=== PATIENT | female | born 1985 | race Caucasian/White ===

== ENCOUNTER → 2019-12-15 11:17 | Outpatient (CLI) | payer OTHER, SELFPAY ==
--- NOTE | ~2019-12-15 | US_ITS ---
US abdomen complete EXAMINATION: US Abdomen Complete INDICATION: Abdominal pain. PROCEDURE: Realtime High Resolution abdomen ultrasound. COMPARISON: No prior studies for comparison FINDINGS: Gallbladder within normal limits. No gallstones, pericholecystic fluid, gallbladder wall t hickening or biliary dilatation. Common bile duct measures 3 mm. Liver echotexture within normal limits without focal mass. Pancreas within normal limits. Pancreati c tail is obscured by bowel gas. Spleen is unremarkeable. Renal echotexture is within normal limits bilaterally without hydronephrosis, contour deforming mass or renal stone. Right kidney measures 9.9 cm. Left kidney measures 9.3 cm. Visualized aspects of the aorta and IVC are within normal limits. Portal vein is patent. No sonograph ic Mcconnell's sign indicated by the technologist. IMPRESSION: 1: Unremarkable abdominal ultrasound. Reviewed, dictated and finalized at location B.
== END ==
PROVIDERS: PCP Physician Assistant; Visit Provider Physician Assistant
DX: R10.9 Unspecified abdominal pain (principal)
CPT/HCPCS: 76700

== ENCOUNTER 2024-11-28 16:00 | Outpatient (CLI) | payer OTHER, SELFPAY ==
--- NOTE | ~2024-11-28 | CT_ITS ---
Kayley Mendez EXAMINATION: CT abdomen pelvis w con COMPARISON: None HISTORY: hernia of anterior abdominal wall TECHNIQUE: Axial images were obtained through the abdomen, pelvis post administration of IV contrast. Oral contrast was also administered. Coronal reconstruction images were obtained from the axial views. CT scan performed using dose optimization techniques including the following automated exposure control; adjustment of mA and/or kV; use of iterative reconstruction technique. Automatic exposure control was used to reduce radiation dose. Permanent radiation dose record is archived to PACS. FINDINGS: CT abdomen: LUNG BASES: The lung bases are clear. The visualized portions of the heart and pericardium are unremarkable. LIVER: Unremarkable, liver contours intact, no lesions. SPLEEN: Unremarkable. KIDNEYS: Right Kidney: Unremarkable. No calculi. No hydronephrosis. Left Kidney: Unremarkable. No calculi. No hydronephrosis ADRENAL GLANDS: Unremarkable. PANCREAS: Unremarkable. GALLBLADDER/BILIARY: Unremarkable. No biliary dilatation. STOMACH AND ESOPHAGUS: Visualized stomach and esophagus within normal limits. BOWEL/MESENTERY: Moderate fecal content, no colitis or diverticulitis. Appendix not clearly identified. Mesentery normal. No dilated small bowel loops. ADENOPATHY/RETROPERITONEUM: No lymphadenopathy. AORTA/VASCULATURE: Normal caliber aorta. FREE FLUID OR FREE AIR: None. CT pelvis: SOLID ORGANS/REPRODUCTIVE: Unremarkable. BLADDER: Within normal limits. OSSEOUS STRUCTURES: No acute osseous abnormality.No suspicious lesions. OVERLYING SOFT TISSUES: Unremarkable. IMPRESSION: 1. No etiology identified to explain the patient's symptoms. Follow-up suggested if symptoms persist. Reviewed, dictated and finalized at location P. IMPRESSION: 1. No etiology identified to explain the patient's symptoms. Follow-up suggeste d if symptoms persist.
--- OUTSIDE RECORDS SUMMARY | 2024-11-28 16:06 | XMS_ITS | Data Portability ---
Author Organization [facility], Main Office Address [address] [place] [address] Assessment No assessment recorded. Plan of Treatment Reminders Order Date Submit Date Provider Last Modified By Organization Details Last Modified Time Details Appointments None recorded. Lab CBC w/ auto diff 2022 023 [facility], [address] [place], [address], 3 15:48:02 CMP, serum or plasma [address] Outpatient Lab, [address] [place], [address], 3 09:11:57 CBC w/ auto diff [address] Outpatient Lab, [address] [place], [address], 3 11:51:33 CMP, serum or plasma [address] Outpatient Lab, [address] [place], [address], 3 11:51:40 urinalysis complete, reflex culture [address] Outpatient Lab, [address] [place], [address], 3 11:51:49 TSH + free T4, serum 2022 023 [facility] Out[facility], [address] [place], [address], 3 11:57:35 vitamin B12 + folate, serum or blood [email or web address] Out[facility] Lab, [address] [place], [address], 3 11:52:00 lipid panel, serum [email or web address] Out[facility], [address] [place], [address], 3 11:51:26 Referral None recorded. Procedures None recorded. Surgeries None recorded. Imaging None recorded. Medication Orders escitalopra m 10 mg tablet 2022 023 [id number], [address] , [place], [place], [id number], 17:50:52 escitalopra m 10 mg tablet 2022 023 [facility] #[id number], [address] , [place], [place], [id number], 11:10:55 Patient TargetsNo targets recorded. Patient InstructionsNo instructions recorded. Reason for Referral None Reported. Results Created Date Observation Date Name Description Value Unit Range Abnormal Flag Note LastModifiedBy Organization Detail LastModifiedTime 08/04/1908/03/2020 US, pelvi s, trans abdom inal + trans vagin al No observ ation record ed. [id number] [facility] (Imaging) [address] [place], [address], 04/26/2022 17:13:45 08/10/19 21 08/03/2020 RF, upper gastr ointe bridget l tract + small bowel , w/ contr ast PO No observ ation record ed. [id number] [facility] (Imaging) [address] [place], [address], 04/26/2022 17:13:45 11/08/19 22 11/07/2021 CT, abdom en + pelvi s, w/ contr ast No observ ation record ed. [id number] [facility] (Imaging) [address] [place], [address], 04/26/2022 17:13:45 11/08/19 22 11/07/2021 NM, gastr ic empty ing scan No observ ation record ed. [id number] [facility] (Imaging) [address] [place], [address], 04/26/2022 17:13:45 03/15/19 24 02/13/2023 CT, head + brain , w/o contr ast No observ ation record ed. [email or web address] [facility] [address] [place], [address], 03/15/2023 15:05:28 Result Notes None recorded. Problems Name Problem SNOMED Code Status Onset Date Resolution Date Notes Provider Name and Address Organization Details Recorded Time Harmful pattern of use of alcohol 06901269 Active Not Available [facility] 3 17:13:07 Depressive disorder 67093849 Active Not Available [facility] 3 17:13:08 Anxiety 74830123 Active Not Available [facility] 3 17:13:08 Bulimia nervosa 56321274 Active Not Available [facility] 3 17:13:08 Mixed anxiety and depressive disorder 663115776 Active 2021 Not Available [facility] 3 17:13:08 Intermittent dysphagia 32652143 Active 2021 Not Available [facility] 3 17:13:07 Bloating symptom 186213500 Active 2021 Not Available [facility] 3 17:13:08 Upper abdominal pain 00197817 Active 2021 Not Available [facility] 3 17:13:08 Altered bowel function 44139760 Active 2021 Not Available [facility] 3 17:13:08 Blood chemistry outside reference range 444723130 Active 2022 TIMI Wilson [address] [facility] [address], [place], [address] , [facility] [employer] 3 13:12:31 Problem Notes None recorded. Medical Equipment None Reported. Allergies No known drug allergies Medications Name Sig Start Date Stop Date Status Note LastModified by Organization Details LastModified Time ibuprofen 800 mg tablet 03/07 completed Not Available Not Available Not Available valacyclo vir 1 gram tablet TAKE 1 TABLET BY MOUTH THREE TIMES DAILY active Not Available Not Available No t Available metronida zole 500 mg tablet 03/07 completed Not Available Not Available Not Available ciproflox acin 0.3 % eye drops INSTILL 1 DROP INTO AFFECTED EYE(S) BY OPHTHALM IC ROUTE EVERY 2 HOURSWHI LE AWAKE FOR 2 DAYS THEN 1 DROP EVERY 4 HRS WHILE AWAKE FOR 5 DAYS 07/27 completed Not Available Not Available Not Available cephalexi n 500 mg capsule 03/07 completed Not Available Not Available Not Available Gentle Laxative (bisacody l) 5 mg tablet,de layed release TAKE 6 TABLET BY MOUTH AT 8AM THE MORNING OF 11/30/1905/19 completed Not Available Not Available Not Available fluoxetin e 10 mg capsule TK 1 C PO QD active Not Available Not Available No t Available fluoxetin e 20 mg capsule TK 1 C PO QD active Not Available Not Available No t Available sertralin e 50 mg tablet Take 1 tablet every day by oral route at bedtime. 05/01 completed never started Not Available Not Available Not Available escitalop jose 10 mg tablet TAKE 1 TABLET BY MOUTH EVERY DAY active Not Available Not Available No t Available escitalop ojse 5 mg tablet TAKE 1 TABLET BY MOUTH EVERY DAY 04/04 completed Not Available Not Available Not Available calcium 600 mg (as carbonate )-vitamin D3 10 mcg (400 unit) tablet TK 1 T PO BID 07/27 completed Not Available Not Available Not Available Gavilyte- C 240 gram-22.7 2 gram-6.72 gram-5.84 gram oral solution 05/19 completed Not Available Not Available Not Available Linzess 145 mcg capsule 03/07 completed Not Available Not Available Not Available PrePlus 27 mg iron-1 mg tablet 07/27 completed Not Available Not Available Not Available Vitals Date Recorded Body height Body weight Heart rate Body temperature Oxygen saturation Oxygen saturation in Arterial blood by Pulse oximetry Systolic And Diastolic Provider Name and Address Organization Details Last Updated DateTime 3 154.94 cm 58916.8 2 g 78 /min 97.5 [degF] 99 % 99 % 112/64 mm[Hg] ANABEL Barber [facility] Bib[facility] 3 10:46:48 Date Recorded Body mass index (BMI) Body height Oxygen saturation Oxygen saturation in Arterial blood by Pulse oximetry Heart rate Body temperature Body weight Systolic And Diastolic Provider Name and Address Organization Details Last Updated DateTime 1 23.6 kg/m2 154.94 cm 99 % 99 % 71 /min 97.8 [degF] 17984.3 3 g 108/70 mm[Hg] Not Available [facility] 3 17:12:53 Date Recorded Body mass index (BMI) Body height Oxygen saturation Oxygen saturation in Arterial blood by Pulse oximetry Heart rate Body temperature Body weight Systolic And Diastolic Provider Name and Address Organization Details Last Updated DateTime 2 24.2 kg/m2 154.94 cm 98 % 98 % 64 /min 98.1 [degF] 86719.5 4 g 112/72 mm[Hg] Not Available [facility] 3 17:12:53 Date Recorded Body height Body mass index (BMI) Body weight Body temperature Heart rate Oxygen saturation Oxygen saturation in Arterial blood by Pulse oximetry Systolic And Diastolic Provider Name and Address Organization Details Last Updated DateTime 3 154.94 cm 24.6 kg/m2 28708.0 1 g 97.6 [degF] 64 /min 98 % 98 % 118/62 mm[Hg] ANABEL Barber [facility] 3 17:32:25 Date Recorded Body mass index (BMI) Body height Oxygen saturation Oxygen saturation in Arterial blood by Pulse oximetry Heart rate Body temperature Body weight Systolic And Diastolic Provider Name and Address Organization Details Last Updated DateTime 1 24.4 kg/m2 154.94 cm 98 % 98 % 86 /min 97.7 [degF] 77671.4 2 g 110/70 mm[Hg] Not Available [facility] 17:12:53 Social History Question Answer Notes LastModified by Organizat ion Details LastModified Time Tobacco Smoking Status Never Smoker Not Available [facility] 04/26/2022 17:12:31 What Is Your Level Of Caffeine Consumption? Moderate [id number] Information not available 04/26/2022 How Much Tobacco Do You Chew? None [id number] Information not available 04/26/2022 In The 14 Days Before Symptom Onset, Have You Had Close Contact With A Laboratory-confirm ed COVID-19 While That Case Was Ill? No [id number] Information not available 04/26/2022 In The 14 Days Before Symptom Onset, Have You Had Close Contact With A Person Who Is Under Investigation For COVID-19 While That Person Was Ill? No [id number] Information not available 04/26/2022 What Type Of Diet Are You Following? REGULAR [id number] Information not available 04/26/2022 Which Illicit Or Recreational Drugs Have You Used? None [id number] Information not available 04/26/2022 Have There Been Any Changes To Your Family Or Social Situation? No [id number] Information not available 04/26/2022 Do You Use Insect Repellent Routinely? No [id number] Information not available 04/26/2022 What Was The Date Of Your Most Recent Tobacco Screening? 10/05/2021 [id number] Information not available 04/26/2022 What Is Your Relationship Status? [id number] [id number] Information not available 04/26/2022 Do You Use Your Seat Belt Or Car Seat Routinely? Yes [id number] Information not available 04/26/2022 Do You Have Smoke And Carbon Monoxide Detectors In Your Home? Yes [id number].[id number] 5614 Information not available 04/26/2022 How Much Tobacco Do You Smoke? No [id number].[id number] 0685 Information not available 04/26/2022 Do You Use Sunscreen Routinely? Yes [id number].[id number] 1633 Information not available 04/26/2022 Have You Recently Traveled Abroad? No [id number].[id number] Information not available 04/26/2022 Do You Have Any Dietary Restrictions? No [id number].359096 4903 Information not available 04/26/2022 Sex: Unknown Functional Status Question Answer Note LastModified by Organizat ion Details LastModified Time Do you use any illicit or recreational drugs? No [id number] 2039 Information not available 04/26/2022 Do you or have you ever used any other forms of tobacco or nicotine? No MIGRATION.[id number] 7606 Information not available 04/26/2022 What is your level of alcohol consumption? Moderate MIGRATION.466061 2780 Information not available 04/26/2022 Do you or have you ever used smokeless tobacco? Never used smokeless tobacco MIGRATION.[id number] 3895 Information not available 04/26/2022 Are you currently employed? 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 Never used electronic cigarettes MIGRATION.[id number] 7817 Information not available 04/26/2022 What is your exercise level? Moderate MIGRATION.700740 2126 Information not available 04/26/2022 Mental Status None recorded. Family History Relationship Description Onset Age of this Age Resolved Age Notes LastModified by Organization Details LastModified Time Mother Diabetes mellitus [id number] Not available 04/26/2022 17:12:34 Mother Myocardial infarction [id number] Not available 04/26/2022 17:12:34 Mother Renal failure syndrome [id number] Not available 04/26/2022 17:12:34 Mother Chronic obstructive pulmonary disease [id number] Not available 04/26/2022 17:12:34 Sister Hypertensive disorder [id number] Not available 04/26/2022 17:12:34 Medical History No medical history recorded. Gynecological History Statement/Question Response Abnormal Pap Y Date of Last Mammogram 02/26/2015 Date of Last Colonoscopy Most Recent Bone Density Date of LMP 11/20/2019 Sexually Active? Y Menses Monthly Y Date of Last Pap 03/07/2019 Current Control Method Partner Vas ectomy Obstetrics History GPAL:G 2 P 0 0 0 2 Type Value Living 2 Total 2 Immunizations Vaccine Type Date Status Note Provider Nam e and Address Organization Details Recorded Time influenza, unspecified formulation 8 completed Not Available [facility] 04/26/2022 17:13:42 Influenza, split virus, quadrivalent, PF 0 completed Not Available [facility] 04/26/2022 17:13:42 Influenza, split virus, quadrivalent, PF 9 completed Not Available [facility] 04/26/2022 17:13:43 Influenza, split virus, quadrivalent, PF 1 completed Not Available [facility] 04/26/2022 17:13:43 Past Encounters Encounter ID Performer Location Encounter Start Date Encounter Closed Date Diagnosis/Indication Diagnosis SNOMED-CT Code Diagnosis ICD10 Code Diagnosis IMO Codes Diagnosis Note [id number] TIMI Wilson [facility] [address] [place] [address] 07/27/2020 00:00:00 07/27/2020 11:31:52 [id number] TIMI Wilson [facility] [address] [place] [address] 02/01/2021 00:00:00 02/24/2021 00:43:19 [id number] Mike Neumann MD [facility] [address] [place] [address] 10/05/2021 00:00:00 10/25/2021 21:20:43 [id number] TIMI Wilson [facility] [address] [place] [address] 05/22/2022 10:36:34 05/22/2022 11:25:43 Mixed anxiety and depressive disorder 354270607 F41.8 stable on lexapro 10mg daily, refilled. Cholesterol screening 27 2208358 Z13.220 fasting lipids due in september. Long-term drug therapy 342855519 Z79.899 all routine labs due in september. [id number] TIMI Wilson [facility] [address] [place] [address] 11/27/2022 17:14:28 11/27/2022 17:52:35 Adult health examination 374574083 Z00.00 annual well check completed Blood chem istry outside reference range 257782890 R79.9 subtle LFT elevation noted on albs. will repeat CMP and CBC Mixed anxi ety and depressive disorder 854754659 F41.8 stable on lexapro 10mg daily, refilled. Long-term drug therapy 104642503 Z79.899 Health Concerns Section Related Observation LastModified by Organization Detai ls LastModified Time None Recorded Concern Status LastModified by Organization Details LastModified Time None Recorded Advance Directives Directive None Recorded Payers Insurance Date Sequence Insurance Name Policy Number Policy Fisher Covered Member ID Fisher Member ID Guarantor Name 04/24/2024 1 [facility] [id number] Sanford Mendez [id number] Kayley Mendez Notes Date Note Type Note Provider Name and Address Organization Details Recorded Time 05/22/2022 text/html Anxiety/Depressi onR eported by PatientHPIFor severity, patient reportsdenies suicidal ideations,able to maintain relationships, anddoes not interfere with activities of daily living. For context, patient reportsno major life stressors. For associated symptoms, patient reportsdenies homicidal ideations,no significant weight gain,no significant weight loss,no visual/auditory hallucinations,no delusions, andno shortness of breath. TIMI Wilson [address], [address] [place] [address], [employer] 05/22/2022 20:16:58 11/27/2022 text/html Anxiety/Depressi onR eported by PatientHPIFor severity, patient reportsdenies suicidal ideations,able to maintain relationships, anddoes not interfere with activities of daily living. For context, patient reportsno major life stressors. For associated symptoms, patient reportsdenies homicidal ideations,no significant weight gain,no significant weight loss,no visual/auditory hallucinations,no delusions, andno shortness of breath. TIMI Wilson [address] [address], [place], [address], [employer] 12/25/2022 22:00:42 OBGyn Episode No OBEpisode recorded.
--- OUTSIDE RECORDS SUMMARY | 2024-11-28 16:06 | XMS_ITS | Data Portability ---
Author Organization [facility] Address [address]okia[place] [address] Care Team Providers Care Wrecker Driver Name Role Phone LALIT LOPEZ Primary Care Provider Unav JIHAN Brownlee Mechanical Operator Assessment No assessment recorded. Plan of Treatment Reminders Order Date Submit Date Provider Last Modified By Organization Details Last Modified Time Details Appointments None recorded. Lab TSH + free T4, serum 2024 025 [facility], [address], [place], [address], 5 16:21:21 CMP, serum or plasma 2024 025 [facility], [address], [place], [address], 5 16:21:19 CBC w/ auto diff 2024 025 [facility], [address], [place], [address], 5 16:21:20 vitamin B12 + folate, serum or blood 2024 025 [facility], [address], [place], [address], 5 16:21:18 lipid panel, serum 2024 025 [email or web address], [address], [place], [address], 5 16:21:19 HbA1c (hemoglob in A1c), blood 2024 025 [facility], [address], [place], [address], 5 16:21:20 TSH + free T4, serum 2023 024 [facility], [address] [place], [address], 4 14:53:50 lipid panel, serum 2023 [facility], [address] [place], [address], 4 14:54:23 CMP, serum or plasma 2023 024 [facility], [address] [place], [address], 4 14:53:22 CBC w/ auto diff 2023 024 [facility], [address] [place], [address], 4 14:54:03 vitamin B12 + folate, serum or blood 2023 024 [facility], [address] [place], [address], 4 14:53:40 HbA1c (hemoglob in A1c), blood 2023 024 [facility], [address] [place], [address], 4 14:54:08 pap, IG + HPV, cervical 2017 018 [facility], [address], [address] [address], [place], [address], 8 20:09:42 bacterial vaginosis + vaginitis panel, vaginal - Z11.3 2017 018 [facility], [address], [address], [place], [address], 8 09:37:17 HSV (1+2) DNA, qual, PCR, unspecifi ed specimen - Z11.3 2017 018 [facility], [address], [address], [place], [address], 8 09:37:18 culture, vaginal/r ectal, streptoco ccus group B - Z11.3 2017 018 [facility], [address], [address], [place], [address], 8 09:37:18 urinalysi s, dipstick 2017 018 [facility], Internal Use Only DO Not Attach Compendium DO Not Attach Compendium, Do Not Delete/merge, 8 14:45:20 test, urine 2017 018 [email or web address], Internal Use Only DO Not Attach Compendium DO Not Attach Compendium, Do Not Delete/merge, 8 14:45:20 urinalysi s, dipstick 2016 017 [email or web address] In-Office Order, Internal Use Only DO Not Attach Compendium DO Not Attach Compendium, Do Not Delete/merge, 7 13:02:32 test, urine 2016 017 [email or web address] In-Office Order, Internal Use Only DO Not Attach Compendium DO Not Attach Compendium, Do Not Delete/merge, [id number] 7 13:02:32 bacterial vaginosis + vaginitis panel, vaginal 2016 017 [facility]OR[facility], [address], [place], [address], 7 06:03:49 urinalysi s, dipstick 2016 017 [email or web address] In-Office Order, Internal Use Only DO Not Attach Compendium DO Not Attach Compendium, Do Not Delete/merge, [id number] 7 12:00:27 Referral general surgeon referral 2016 017 [email or web address] Not available 15:28:31 Procedures None recorded. Surgeries None recorded. Imaging MAMMO, screening , digital, bilateral 2024 025 ATHENAFAX [facility] [place], [facility], [place], [address], 11:28:22 CT, abdomen + pelvis, w/ contrast 2024 025 [email or web address] [facility], [address], [place], [address], 11:26:48 Medication Orders escitalop jose 10 mg tablet 2024 025 THORNBURG [id number], [address], [place], [place], [id number], 5 16:20:38 norethind ella (contrace ptive) 0.35 mg tablet 2017 018 [email or web address] [address] [facility], [address], [place], [address], 4 16:15:24 calcium 600 mg (as carbonate )-vitamin D3 20 mcg (800 unit) tablet 2017 018 [email or web address] [address], [address], 4 16:15:30 PrePlus 27 mg iron-1 mg tablet 2017 018 [email or web address] [address], [address], 4 16:15:14 Linzess 145 mcg capsule 2016 017 [email or web address] [address], [address], 8 10:03:51 Keflex 500 mg capsule 2016 017 [email or web address] [address], [address], 8 10:04:07 Flagyl 500 mg tablet 2016 017 [email or web address] [address], [address], 8 10:03:46 Patient TargetsNo targets recorded. Patient Instructions Encounter Date Encounter Id Patient Instructions Last Modified By Organization Details Last Modified Time 02/20/2017 [id number] constipation: care instructions [email or web address] Not available 02/20/2017 13:07:26 Reason for Referral General Surgeon Referral for Hernia of abdominal wall Referring Physician: Jihan Oconnor CHAIN MAKER, Encounter Date: 02/20/2017 Results Created Date Observation Date Name Description Value Unit Range Abnormal Flag Note LastModifiedBy Organization Detail LastModifiedTime 03/28/19 18 03/28/2017 pregn vicky test, urine HCG negati ve Not Available In-Office Order Internal Use Only DO Not Attach Compendium DO Not Attach Compendium, Do Not Delete/merge, [id number] 03/28/2017 09:46:11 02/21/20 17 02/20/2017 pregn vicky test, urine HCG negati ve Not Available In-Office Order Internal Use Only DO Not Attach Compendium DO Not Attach Compendium, Do Not Delete/merge, [id number] 02/20/2017 12:22:28 02/21/20 17 02/20/2017 urina lysis , dipst ick Leukocytes Small Not Available In-Offi ce Order Internal Use Only DO Not Attach Compendium DO Not Attach Compendium, Do Not Delete/merge, [id number] 02/20/2017 12:22:26 02/21/20 17 02/20/2017 urina lysis , dipst ick Nitrite negati ve Not Available In-Office Order Internal Use Only DO Not Attach Compendium DO Not Attach Compendium, Do Not Delete/merge, [id number] 02/20/2017 12:22:26 02/21/20 17 02/20/2017 urina lysis , dipst ick Urobilinogen .2 Not Available In-Of fice Order Internal Use Only DO Not Attach Compendium DO Not Attach Compendium, Do Not Delete/merge, [id number] 02/20/2017 12:22:26 02/21/20 17 02/20/2017 urina lysis , dipst ick Protein Negati ve Not Available In-Office Order Internal Use Only DO Not Attach Compendium DO Not Attach Compendium, Do Not Delete/merge, [id number] 02/20/2017 12:22:26 02/21/20 17 02/20/2017 urina lysis , dipst ick pH 7.5 Not Available In-Office Order Internal Use Only DO Not Attach Compendium DO Not Attach Compendium, Do Not Delete/merge, [id number] 02/20/2017 12:22:26 02/21/20 17 02/20/2017 urina lysis , dipst ick Blood Large Not Available In-Office Order Internal Use Only DO Not Attach Compendium DO Not Attach Compendium, Do Not Delete/merge, [id number] 02/20/2017 12:22:26 02/21/20 17 02/20/2017 urina lysis , dipst ick Specific Saco 1.015 Not Available In-Off ice Order Internal Use Only DO Not Attach Compendium DO Not Attach Compendium, Do Not Delete/merge, [id number] 02/20/2017 12:22:26 02/21/20 17 02/20/2017 urina lysis , dipst ick Ketone Negati ve Not Available In-Office Order Internal Use Only DO Not Attach Compendium DO Not Attach Compendium, Do Not Delete/merge, [id number] 02/20/2017 12:22:26 02/21/20 17 02/20/2017 urina lysis , dipst ick Bilirubin Negati ve Not Available In-Office Order Internal Use Only DO Not Attach Compendium DO Not Attach Compendium, Do Not Delete/merge, [id number] 02/20/2017 12:22:26 02/21/20 17 02/20/2017 urina lysis , dipst ick Glucose Negati ve Not Available In-Office Order Internal Use Only DO Not Attach Compendium DO Not Attach Compendium, Do Not Delete/merge, [id number] 02/20/2017 12:22:26 02/15/20 17 02/14/2017 urina lysis , dipst ick Leukocytes Negati ve Not Available In-Office Order Internal Use Only DO Not Attach Compendium DO Not Attach Compendium, Do Not Delete/merge, [id number] 02/14/2017 10:22:47 02/15/20 17 02/14/2017 urina lysis , dipst ick Nitrite negati ve Not Available In-Office Order Internal Use Only DO Not Attach Compendium DO Not Attach Compendium, Do Not Delete/merge, [id number] 02/14/2017 10:22:47 02/15/20 17 02/14/2017 urina lysis , dipst ick Urobilinogen .2 Not Available In-Of fice Order Internal Use Only DO Not Attach Compendium DO Not Attach Compendium, Do Not Delete/merge, [id number] 02/14/2017 10:22:47 02/15/20 17 02/14/2017 urina lysis , dipst ick Protein Negati ve Not Available In-Office Order Internal Use Only DO Not Attach Compendium DO Not Attach Compendium, Do Not Delete/merge, [id number] 02/14/2017 10:22:47 02/15/20 17 02/14/2017 urina lysis , dipst ick pH 7.0 Not Available In-Office Order Internal Use Only DO Not Attach Compendium DO Not Attach Compendium, Do Not Delete/merge, [id number] 02/14/2017 10:22:47 02/15/20 17 02/14/2017 urina lysis , dipst ick Blood Negati ve Not Available In-Office Order Internal Use Only DO Not Attach Compendium DO Not Attach Compendium, Do Not Delete/merge, [facility] 02/14/2017 10:22:47 02/15/20 17 02/14/2017 urina lysis , dipst ick Specific Saco 1.010 Not Available In-Off ice Order Internal Use Only DO Not Attach Compendium DO Not Attach Compendium, Do Not Delete/merge, [facility] 02/14/2017 10:22:47 02/15/20 17 02/14/2017 urina lysis , dipst ick Ketone Negati ve Not Available In-Office Order Internal Use Only DO Not Attach Compendium DO Not Attach Compendium, Do Not Delete/merge, [facility] 02/14/2017 10:22:47 02/15/20 17 02/14/2017 urina lysis , dipst ick Bilirubin Negati ve Not Available In-Office Order Internal Use Only DO Not Attach Compendium DO Not Attach Compendium, Do Not Delete/merge, [id number] 02/14/2017 10:22:47 02/15/20 17 02/14/2017 urina lysis , dipst ick Glucose Negati ve Not Available In-Office Order Internal Use Only DO Not Attach Compendium DO Not Attach Compendium, Do Not Delete/merge, [id number] 02/14/2017 10:22:47 02/08/20 17 02/07/2017 urina lysis , dipst ick Leukocytes Negati ve Not Available In-Office Order Internal Use Only DO Not Attach Compendium DO Not Attach Compendium, Do Not Delete/merge, [id number] 02/07/2017 10:17:32 02/08/20 17 02/07/2017 urina lysis , dipst ick Nitrite negati ve Not Available In-Office Order Internal Use Only DO Not Attach Compendium DO Not Attach Compendium, Do Not Delete/merge, [id number] 02/07/2017 10:17:32 02/08/20 17 02/07/2017 urina lysis , dipst ick Urobilinogen .2 Not Available In-Of fice Order Internal Use Only DO Not Attach Compendium DO Not Attach Compendium, Do Not Delete/merge, [facility] 02/07/2017 10:17:32 02/08/20 17 02/07/2017 urina lysis , dipst ick Protein Negati ve Not Available In-Office Order Internal Use Only DO Not Attach Compendium DO Not Attach Compendium, Do Not Delete/merge, [facility] 02/07/2017 10:17:32 02/08/20 17 02/07/2017 urina lysis , dipst ick pH 7.0 Not Available In-Office Order Internal Use Only DO Not Attach Compendium DO Not Attach Compendium, Do Not Delete/merge, [facility] 02/07/2017 10:17:32 02/08/20 17 02/07/2017 urina lysis , dipst ick Blood Negati ve Not Available In-Office Order Internal Use Only DO Not Attach Compendium DO Not Attach Compendium, Do Not Delete/merge, [facility] 02/07/2017 10:17:32 02/08/20 17 02/07/2017 urina lysis , dipst ick Specific Saco 1.005 Not Available In-Off ice Order Internal Use Only DO Not Attach Compendium DO Not Attach Compendium, Do Not Delete/merge, [facility] 02/07/2017 10:17:32 02/08/20 17 02/07/2017 urina lysis , dipst ick Ketone Negati ve Not Available In-Office Order Internal Use Only DO Not Attach Compendium DO Not Attach Compendium, Do Not Delete/merge, [facility] 02/07/2017 10:17:32 02/08/20 17 02/07/2017 urina lysis , dipst ick Bilirubin Negati ve Not Available In-Office Order Internal Use Only DO Not Attach Compendium DO Not Attach Compendium, Do Not Delete/merge, [facility] 02/07/2017 10:17:32 02/08/20 17 02/07/2017 urina lysis , dipst ick Glucose Negati ve Not Available In-Office Order Internal Use Only DO Not Attach Compendium DO Not Attach Compendium, Do Not Delete/merge, [id number] 02/07/2017 10:17:32 02/01/20 17 01/31/2017 urina lysis , dipst ick Leukocytes Negati ve Not Available In-Office Order Internal Use Only DO Not Attach Compendium DO Not Attach Compendium, Do Not Delete/merge, [id number] 01/31/2017 10:06:46 02/01/20 17 01/31/2017 urina lysis , dipst ick Nitrite negati ve Not Available In-Office Order Internal Use Only DO Not Attach Compendium DO Not Attach Compendium, Do Not Delete/merge, [id number] 01/31/2017 10:06:46 02/01/20 17 01/31/2017 urina lysis , dipst ick Urobilinogen .2 Not Available In-Of fice Order Internal Use Only DO Not Attach Compendium DO Not Attach Compendium, Do Not Delete/merge, [id number] 01/31/2017 10:06:46 02/01/20 17 01/31/2017 urina lysis , dipst ick Protein Negati ve Not Available In-Office Order Internal Use Only DO Not Attach Compendium DO Not Attach Compendium, Do Not Delete/merge, [id number] 01/31/2017 10:06:46 02/01/20 17 01/31/2017 urina lysis , dipst ick pH 7.0 Not Available In-Office Order Internal Use Only DO Not Attach Compendium DO Not Attach Compendium, Do Not Delete/merge, [id number] 01/31/2017 10:06:46 02/01/20 17 01/31/2017 urina lysis , dipst ick Blood Negati ve Not Available In-Office Order Internal Use Only DO Not Attach Compendium DO Not Attach Compendium, Do Not Delete/merge, [id number] 01/31/2017 10:06:46 02/01/20 17 01/31/2017 urina lysis , dipst ick Specific Saco 1.020 Not Available In-Off ice Order Internal Use Only DO Not Attach Compendium DO Not Attach Compendium, Do Not Delete/merge, [id number] 01/31/2017 10:06:46 02/01/20 17 01/31/2017 urina lysis , dipst ick Ketone Negati ve Not Available In-Office Order Internal Use Only DO Not Attach Compendium DO Not Attach Compendium, Do Not Delete/merge, [id number] 01/31/2017 10:06:46 02/01/20 17 01/31/2017 urina lysis , dipst ick Bilirubin Negati ve Not Available In-Office Order Internal Use Only DO Not Attach Compendium DO Not Attach Compendium, Do Not Delete/merge, [id number] 01/31/2017 10:06:46 02/01/20 17 01/31/2017 urina lysis , dipst ick Glucose Negati ve Not Available In-Office Order Internal Use Only DO Not Attach Compendium DO Not Attach Compendium, Do Not Delete/merge, [id number] 01/31/2017 10:06:46 01/25/20 17 01/24/2017 urina lysis , dipst ick Leukocytes Negati ve Not Available In-Office Order Internal Use Only DO Not Attach Compendium DO Not Attach Compendium, Do Not Delete/merge, [id number] 01/24/2017 10:11:47 01/25/20 17 01/24/2017 urina lysis , dipst ick Nitrite negati ve Not Available In-Office Order Internal Use Only DO Not Attach Compendium DO Not Attach Compendium, Do Not Delete/merge, [id number] 01/24/2017 10:11:47 01/25/20 17 01/24/2017 urina lysis , dipst ick Urobilinogen .2 Not Available In-Of fice Order Internal Use Only DO Not Attach Compendium DO Not Attach Compendium, Do Not Delete/merge, [id number] 01/24/2017 10:11:47 01/25/20 17 01/24/2017 urina lysis , dipst ick Protein Negati ve Not Available In-Office Order Internal Use Only DO Not Attach Compendium DO Not Attach Compendium, Do Not Delete/merge, [id number] 01/24/2017 10:11:47 01/25/20 17 01/24/2017 urina lysis , dipst ick pH 7.0 Not Available In-Office Order Internal Use Only DO Not Attach Compendium DO Not Attach Compendium, Do Not Delete/merge, [id number] 01/24/2017 10:11:47 01/25/20 17 01/24/2017 urina lysis , dipst ick Blood Negati ve Not Available In-Office Order Internal Use Only DO Not Attach Compendium DO Not Attach Compendium, Do Not Delete/merge, [id number] 01/24/2017 10:11:47 01/25/20 17 01/24/2017 urina lysis , dipst ick Specific Saco 1.010 Not Available In-Off ice Order Internal Use Only DO Not Attach Compendium DO Not Attach Compendium, Do Not Delete/merge, [id number] 01/24/2017 10:11:47 01/25/20 17 01/24/2017 urina lysis , dipst ick Ketone Negati ve Not Available In-Office Order Internal Use Only DO Not Attach Compendium DO Not Attach Compendium, Do Not Delete/merge, [id number] 01/24/2017 10:11:47 01/25/20 17 01/24/2017 urina lysis , dipst ick Bilirubin Negati ve Not Available In-Office Order Internal Use Only DO Not Attach Compendium DO Not Attach Compendium, Do Not Delete/merge, [id number] 01/24/2017 10:11:47 01/25/20 17 01/24/2017 urina lysis , dipst ick Glucose Negati ve Not Available In-Office Order Internal Use Only DO Not Attach Compendium DO Not Attach Compendium, Do Not Delete/merge, [id number] 01/24/2017 10:11:47 01/18/20 17 01/17/2017 urina lysis , dipst ick Leukocytes Negati ve Not Available In-Office Order Internal Use Only DO Not Attach Compendium DO Not Attach Compendium, Do Not Delete/merge, [id number] 01/17/2017 11:01:16 01/18/20 17 01/17/2017 urina lysis , dipst ick Nitrite negati ve Not Available In-Office Order Internal Use Only DO Not Attach Compendium DO Not Attach Compendium, Do Not Delete/merge, [id number] 01/17/2017 11:01:16 01/18/20 17 01/17/2017 urina lysis , dipst ick Urobilinogen .2 Not Available In-Of fice Order Internal Use Only DO Not Attach Compendium DO Not Attach Compendium, Do Not Delete/merge, [id number] 01/17/2017 11:01:16 01/18/20 17 01/17/2017 urina lysis , dipst ick Protein Negati ve Not Available In-Office Order Internal Use Only DO Not Attach Compendium DO Not Attach Compendium, Do Not Delete/merge, [id number] 01/17/2017 11:01:16 01/18/20 17 01/17/2017 urina lysis , dipst ick pH 7.0 Not Available In-Office Order Internal Use Only DO Not Attach Compendium DO Not Attach Compendium, Do Not Delete/merge, [id number] 01/17/2017 11:01:16 01/18/20 17 01/17/2017 urina lysis , dipst ick Blood Negati ve Not Available In-Office Order Internal Use Only DO Not Attach Compendium DO Not Attach Compendium, Do Not Delete/merge, [id number] 01/17/2017 11:01:16 01/18/20 17 01/17/2017 urina lysis , dipst ick Specific Saco 1.020 Not Available In-Off ice Order Internal Use Only DO Not Attach Compendium DO Not Attach Compendium, Do Not Delete/merge, [id number] 01/17/2017 11:01:16 01/18/20 17 01/17/2017 urina lysis , dipst ick Ketone Negati ve Not Available In-Office Order Internal Use Only DO Not Attach Compendium DO Not Attach Compendium, Do Not Delete/merge, [id number] 01/17/2017 11:01:16 01/18/20 17 01/17/2017 urina lysis , dipst ick Bilirubin Negati ve Not Available In-Office Order Internal Use Only DO Not Attach Compendium DO Not Attach Compendium, Do Not Delete/merge, [id number] 01/17/2017 11:01:16 01/18/20 17 01/17/2017 urina lysis , dipst ick Glucose Negati ve Not Available In-Office Order Internal Use Only DO Not Attach Compendium DO Not Attach Compendium, Do Not Delete/merge, [id number] 01/17/2017 11:01:16 01/18/20 17 01/18/2017 RPR (rapi d plasm a reagi n), serum RPR NON REACTI VE non reacti ve Not Available [facility] ([facility]) [address] [facility], [place], [address], 01/18/2017 08:24:06 01/18/20 17 01/18/2017 HIV 1+2 AB + HIV 1 p24 Ag, quali tativ e immun oassa y, serum HIV screen 4TH generation wrfx NON REACTI VE non reacti ve Not Available [facility] ([facility]) [address], [place], [address], 01/18/2017 08:24:07 01/18/20 17 01/18/2017 HBsAg (hepa titis B surfa ce Ag), EIA, serum HBsAg screen NEGATI VE negati ve Not Available [facility] ([facility]) [address] [facility], [place], [address], 01/18/2017 08:24:07 01/18/20 17 01/21/2017 bacte rial vagin osis + vagin itis panel , vagin al trich vag by SREEDHAR NEGATI VE negati ve Not Available [facility] ([facility]) [address] [place], [address], 01/22/2017 07:06:59 01/18/20 17 01/21/2017 bacte rial vagin osis + vagin itis panel , vagin al chlamydia trachomatis, SREEDHAR NEGATI VE negati ve Not Available [facility] ([facility]) [address] [place], [address], 01/22/2017 07:06:59 01/18/20 17 01/21/2017 bacte rial vagin osis + vagin itis panel , vagin al neisseria gonorrhoeae, SREEDHAR NEGATI VE negati ve Not Available [facility] ([facility]) [address] [place], [address], 01/22/2017 07:06:59 01/18/20 17 01/22/2017 bacte rial vagin osis + vagin itis panel , vagin al atopobium vaginae LOW - 0 score Not Available [facility] ([facility]) [address] [place], [address], 01/22/2017 07:06:59 01/18/20 17 01/22/2017 bacte rial vagin osis + vagin itis panel , vagin al bvab 2 LOW - 0 score Not Available [facility] ([facility]) [address] [facility], [place], [address], 01/22/2017 07:06:59 01/18/20 17 01/22/2017 bacte rial vagin osis + vagin itis panel , vagin al megasphaera 1 LOW - 0 score Calcu late total score by santy troy the 3 indiv idual bacte rial vagin osis (BV) marke r score s toget her. Total score is inter prete d as follo ws: Total score 0-1: Indic ates the absen ce of BV. Total score 2: Indet ermin ate for BV. Addit ional clini mia data shoul d be evalu ated to estab pattie a diagn osis. Total score 3-6: Indic ates the prese nce of BV. This test was devel oped and its perfo rmanc e yany cteri stics deter mined by [facility]. It has not been clear ed or appro ivon by the Food and Drug Admin istra tion. The FDA has deter mined that such clear ance or appro skyler is not neces itzel. Not Available [facility] ([facility]) [address] [facility], [place], [address], 01/22/2017 07:06:59 01/18/20 17 01/22/2017 bacte rial vagin osis + vagin itis panel , vagin al veronica albicans, SREEDHAR NEGATI VE negati ve Not Available [facility] ([facility]) [address] [facility], [place], [address], 01/22/2017 07:06:59 01/18/20 17 01/22/2017 bacte rial vagin osis + vagin itis panel , vagin al veronica glabrata, SREEDHAR NEGATI VE negati ve This test was randi conteh and its perfo rmanc e yany beckri stics deter mined by [facility]. It has not been clear ed or appro ivon by the Food and Drug Admin istra tion. The FDA has deter mined that such clear ance or appro skyler is not necalyssia itzel. Not Available [facility] ([facility]) [address] [place], [address], 01/22/2017 07:06:59 01/18/20 17 01/19/2017 HSV (1+2) DNA, qual, PCR, unspe cifie d speci men hsv 1 SREEDHAR NEGATI VE negati ve Not Available [facility] ([facility]) [address] [place], [address], 01/22/2017 07:06:59 01/18/20 17 01/19/2017 HSV (1+2) DNA, qual, PCR, unspe cifie d speci men hsv 2 SREEDHAR NEGATI VE negati ve Not Available [facility] ([facility]) [address] [place], [address], 01/22/2017 07:06:59 01/18/20 17 01/19/2017 RPR (rapi d plasm a reagi n), serum RPR TNP Pleas e refer to the follo wing speci men for addit ional lab resul ts. SEE:3 5-567 5-0 Not Available [facility] ([facility]) [address] [place], [address], 01/22/2017 07:07:00 01/18/20 17 01/19/2017 HIV 1+2 AB + HIV 1 p24 Ag, quali tativ e immun oassa y, serum HIV screen 4TH generation wrfx TNP Pleas e refer to the follo wing speci men for addit ional lab resul ts. SEE: 5-567 5-0 Not Available [facility] ([facility]) [address] [facility], [place], [address], 01/22/2017 07:07:00 01/18/20 17 01/19/2017 cultu re, vagin al/re ctal, strep tococ cus group B strep gp B SREEDHAR NEGATI VE negati ve [facility] Contr ol [facility]ve n[facility] ([facility] [place]NOTE 2[place] and Ameri can Congr ess of Obste trici ans and Gynec ologi sts (ACOG ) guide lines for preve ntion of perin atal group B strep tococ mia (GBS) disea se speci fy co-co llect ion of a vagin al and recta l swab speci men to maxim ize sensi tivit y of GBS detec tion. Per the [facility] [place]NOTE 2] and [facility]G, swabb ing both the lower vagin a and rectu m subst antia lly incre ases the yield of detec tion leticia red with sampl ing the vagin a alone . Penic illin G, ampic illin , or cefaz thang are indic ated for intra partu m proph ylaxi s of perin atal GBS colon izati on. Refle x susce ptibi lity testi ng shoul d be perfo rmed prior to use of clind amyci n only on GBS isola padmini from penic illin -gilda rgic women who are consi dered a high risk for anaph ylaxi s. Treat ment with vanco mycin witho ut addit ional testi ng is warra nted if resis tance to clind amyci n is noted . Not Available [facility] ([facility]) [address] [facility], [place], [address], 01/22/2017 07:07:01 01/18/20 17 01/19/2017 HBsAg (hepa titis B surfa ce Ag), EIA, serum HBsAg screen TNP Pleas e refer to the follo wing speci men for addit ional lab resul ts. SEE:3 -30 5-567 5-0 Not Available [facility] ([facility]) [address] [facility], [place], [address], 01/22/2017 07:07:01 01/18/20 17 01/19/2017 speci men statu s repor t specimen status report TNP Pleas e refer to the follo wing speci men for addit ional lab resul ts. TEST: [id number] 5 RPR, Rfx Qn RPR/[place] [address] 5 Panel [id number] 5 [id number] 0 HBsAg Scree n SEE:3 5-567 5-0 Not Available [facility] ([facility]) [address] [place], [address], 01/22/2017 07:07:02 02/21/20 17 02/22/2017 bacte rial vagin osis + vagin itis panel , vagin al atopobium vaginae LOW - 0 score Not Available [facility] ([facility]) [address] [place], [address], 02/23/2017 06:03:49 02/21/20 17 02/22/2017 bacte rial vagin osis + vagin itis panel , vagin al bvab 2 LOW - 0 score Not Available [facility] ([facility]) [address] [place], [address], 02/23/2017 06:03:49 02/21/20 17 02/22/2017 bacte rial vagin osis + vagin itis panel , vagin al megasphaera 1 LOW - 0 score Calcu late total score by santy g the 3 indiv idual bacte rial vagin osis (BV) marke r score s toget her. Total score is inter prete d as follo ws: Total score 0-1: Indic ates the absen ce of BV. Total score 2: Indet ermin ate for BV. Addit ional clini mia data shoul d be evalu ated to estab pattie a diagn osis. Total score 3-6: Indic ates the prese nce of BV. This test was devel oped and its perfo rmanc e yany cteri stics deter mined by [facility]. It has not been clear ed or appro ivon by the Food and Drug Admin istra tion. The FDA has deter mined that such clear ance or appro skyler is not linda robbins. Not Available [facility] ([facility]) [address] [place], [address], 02/23/2017 06:03:49 02/21/20 17 02/22/2017 bacte rial vagin osis + vagin itis panel , vagin al trich vag by SREEDHAR NEGATI VE negati ve Not Available [facility] ([facility]) [address] [place], [address], 02/23/2017 06:03:49 02/21/20 17 02/22/2017 bacte rial vagin osis + vagin itis panel , vagin al chlamydia trachomatis, SREEDHAR NEGATI VE negati ve Not Available [facility] ([facility]) [address] [place], [address], 02/23/2017 06:03:49 02/21/20 17 02/22/2017 bacte rial vagin osis + vagin itis panel , vagin al neisseria gonorrhoeae, SREEDHAR NEGATI VE negati ve Not Available [facility] ([facility]) [address] [place] [address], [address], 02/23/2017 06:03:49 02/21/20 17 02/23/2017 bacte rial vagin osis + vagin itis panel , vagin al veronica albicans, SREEDHAR NEGATI VE negati ve Not Available [facility] ([facility]) [address] [place], [address], 02/23/2017 06:03:49 02/21/20 17 02/23/2017 bacte rial vagin osis + vagin itis panel , vagin al veronica glabrata, SREEDHAR NEGATI VE negati ve This test was devel oped and its perfo rmanc e yany cteri stics deter mined by [facility]. It has not been clear ed or appro ivon by the Food and Drug Admin istra tion. The FDA has deter mined that such clear ance or appro skyler is not linda robbins. Not Available [facility] ([facility]) [address] [facility], [place], [address], 02/23/2017 06:03:49 03/28/19 18 03/29/2017 pap, IG + HPV, cervi mia diagnosis: Sue HORAN FOR INTRA EPITH ELIAL LESIO N AND LEATHA KINSEY . Not Available [facility] ([facility]) [address] [facility], [place], [address], 03/30/2017 20:09:42 03/28/19 18 03/29/2017 pap, IG + HPV, cervi mia specimen adequacy: Sue guerin Satis facto nas for evalu ation . Endoc ervic al and/o r squam ous metap lasti c cells (endo cervi mia compo nent) are prese nt. Not Available [facility] ([facility]) [address] [facility], [place], [address], 03/30/2017 20:09:42 03/28/19 18 03/29/2017 pap, IG + HPV, cervi mia clinician provided ICD10: Sue guerin V24.2 Z39.2 Not Available [facility] ([facility]) [address] [place], [address], 03/30/2017 20:09:42 03/28/19 18 03/29/2017 pap, IG + HPV, cervi mia performed by: Sue callahan, Cytot jolynn guerin (ASCP ) Not Available [facility] ([facility]) [address] [place], [address], 03/30/2017 20:09:42 03/28/19 18 03/29/2017 pap, IG + HPV, cervi mia . . Not Available [facility] ([facility]) [address] [place], [address], 03/30/2017 20:09:42 03/28/19 18 03/29/2017 pap, IG + HPV, cervi mia note: Commen t The Pap smear is a scree nathaly test desig keri to aid in the detec tion of dasha ligna nt and malig nant condi tions of the uteri ne cervi x. It is not a diagn ostic proce dure and shoul d not be used as the sole means of detec ting cervi mia cance r. Both false -posi tive and false -nega tive repor ts do occur . Not Available [facility] ([facility]) [address] [place], [address], 03/30/2017 20:09:42 03/28/19 18 03/29/2017 pap, IG + HPV, cervi mia test methodology: Sue t This liqui d based ThinP rep(R ) pap test was scree keri with the use of an image guide reinaldo ho. Not Available [facility] ([facility]) [address] [facility], [place], [address], 03/30/2017 20:09:42 03/28/19 18 03/30/2017 pap, IG + HPV, cervi mia HPV aptima Negati ve negati ve This test detec ts fourt een high- risk HPV types (16/1 8/31/ 33/35 /39/4 5/ 51/52 /56/5 8/59/ 66/68 ) witho ut diffe renti ation . Not Available [facility] ([facility]) [address] [facility], [place], [address], 03/30/2017 20:09:42 03/28/19 18 03/30/2017 bacte rial vagin osis + vagin itis panel , vagin al chlamydia trachomatis, SREEDHAR Negati ve negati ve Not Available [facility] ([facility]) [address] [place], [address], 03/31/2017 09:37:17 03/28/19 18 03/30/2017 bacte rial vagin osis + vagin itis panel , vagin al neisseria gonorrhoeae, SREEDHAR Negati ve negati ve Not Available [facility] ([facility]) [address] [place], [address], 03/31/2017 09:37:17 03/28/19 18 03/31/2017 bacte rial vagin osis + vagin itis panel , vagin al atopobium vaginae Low - 0 score Not Available [facility] ([facility]) [address] [place], [address], 03/31/2017 09:37:17 03/28/19 18 03/31/2017 bacte rial vagin osis + vagin itis panel , vagin al bvab 2 Low - 0 score Not Available [facility] ([facility]) [address] [place], [address], 03/31/2017 09:37:17 03/28/19 18 03/31/2017 bacte rial vagin osis + vagin itis panel , vagin al megasphaera 1 Low - 0 score Calcu late total score by santy troy the 3 indiv idual bacte rial vagin osis (BV) marke r score s toget her. Total score is inter prete d as follo ws: Total score 0-1: Indic ates the absen ce of BV. Total score 2: Indet ermin ate for BV. Addit ional clini mia data shoul d be evalu ated to estab pattie a diagn osis. Total score 3-6: Indic ates the prese nce of BV. This test was devel oped and its perfo rmanc e yany cteri stics deter mined by [facility]. It has not been clear ed or appro ivon by the Food and Drug Admin istra tion. The FDA has deter mined that such clear ance or appro skyler is not neces itzel. Not Available [facility] ([facility]) [address] [place], [address], 03/31/2017 09:37:17 03/28/19 18 03/31/2017 bacte rial vagin osis + vagin itis panel , vagin al veronica albicans, SREEDHAR Negati ve negati ve Not Available [facility] ([facility]) [address] [place], [address], 03/31/2017 09:37:17 03/28/19 18 03/31/2017 bacte rial vagin osis + vagin itis panel , vagin al veronica glabrata, SREEDHAR Negati ve negati ve This test was devel oped and its perfo rmanc e yany cteri stics deter mined by [facility]. It has not been clear ed or appro ivon by the Food and Drug Admin istra tion. The FDA has deter mined that such clear ance or appro skyler is not neces itzel. Not Available [facility] ([facility]) [address] [facility], [place], [address], 03/31/2017 09:37:17 03/28/19 18 03/31/2017 bacte rial vagin osis + vagin itis panel , vagin al trich vag by SREEDHAR Negati ve negati ve Not Available [facility] ([facility]) [address] [place], [address], 03/31/2017 09:37:17 03/28/19 18 03/30/2017 HSV (1+2) DNA, qual, PCR, unspe cifie d speci men hsv 1 SREEDHAR Negati ve negati ve Not Available [facility] ([facility]) [address] [place], [address], 03/31/2017 09:37:18 03/28/19 18 03/30/2017 HSV (1+2) DNA, qual, PCR, unspe cifie d speci men hsv 2 SREEDHAR Negati ve negati ve Not Available [facility] ([facility]) [address] [place], [address], 03/31/2017 09:37:18 03/28/19 18 03/30/2017 cultu re, vagin al/re ctal, strep tococ cus group B strep gp B SREEDHAR Negati ve negati ve [facility] se Contr ol [facility] n[facility] ([facility] [place]NOTE 2[place] and Ameri can Congr ess of Obste trici ans and Gynec ologi sts (ACOG ) guide lines for preve ntion of perin atal group B strep tococ mia (GBS) disea se speci fy co-co llect ion of a vagin al and recta l swab speci men to maxim ize sensi tivit y of GBS detec tion. Per the CDC and ACOG, swabb ing both the lower vagin a and rectu m subst antia lly incre ases the yield of detec tion leticia red with sampl ing the vagin a alone . Penic illin G, ampic illin , or cefaz thang are indic ated for intra partu m proph ylaxi s of perin atal GBS colon izati on. Refle x susce ptibi lity testi ng shoul d be perfo rmed prior to use of clind amyci n only on GBS isola padmini from penic illin -gilda rgic women who are consi dered a high risk for anaph ylaxi s. Treat ment with vanco mycin witho ut addit ional testi ng is warra nted if resis tance to clind amyci n is noted . Not Available [facility] ([facility]) [address] [facility], [place], [address], 03/31/2017 09:37:18 03/28/19 18 03/28/2017 urina lysis , dipst ick Leukocytes Trace Not Available In-Offi ce Order Internal Use Only DO Not Attach Compendium DO Not Attach Compendium, Do Not Delete/merge, [id number] 03/28/2017 09:46:09 03/28/19 18 03/28/2017 urina lysis , dipst ick Nitrite negati ve Not Available In-Office Order Internal Use Only DO Not Attach Compendium DO Not Attach Compendium, Do Not Delete/merge, [id number] 03/28/2017 09:46:09 03/28/19 18 03/28/2017 urina lysis , dipst ick Urobilinogen .2 Not Available In-Of fice Order Internal Use Only DO Not Attach Compendium DO Not Attach Compendium, Do Not Delete/merge, [facility] 03/28/2017 09:46:09 03/28/19 18 03/28/2017 urina lysis , dipst ick Protein Negati ve Not Available In-Office Order Internal Use Only DO Not Attach Compendium DO Not Attach Compendium, Do Not Delete/merge, [facility] 03/28/2017 09:46:09 03/28/19 18 03/28/2017 urina lysis , dipst ick pH 5.5 Not Available In-Office Order Internal Use Only DO Not Attach Compendium DO Not Attach Compendium, Do Not Delete/merge, [id number] 03/28/2017 09:46:09 03/28/19 18 03/28/2017 urina lysis , dipst ick Blood Negati ve Not Available In-Office Order Internal Use Only DO Not Attach Compendium DO Not Attach Compendium, Do Not Delete/merge, [facility] 03/28/2017 09:46:09 03/28/19 18 03/28/2017 urina lysis , dipst ick Specific [place] 1.015 Not Available In-Off ice Order Internal Use Only DO Not Attach Compendium DO Not Attach Compendium, Do Not Delete/merge, [id number] 03/28/2017 09:46:09 03/28/19 18 03/28/2017 urina lysis , dipst ick Ketone Negati ve Not Available In-Office Order Internal Use Only DO Not Attach Compendium DO Not Attach Compendium, Do Not Delete/merge, 03/28/2017 09:46:09 03/28/19 18 03/28/2017 urina lysis , dipst ick Bilirubin Negati ve Not Available In-Office Order Internal Use Only DO Not Attach Compendium DO Not Attach Compendium, Do Not Delete/merge, [id number] 03/28/2017 09:46:09 03/28/1903/28/2017 urina lysis , dipst ick Glucose Negati ve Not Available In-Office Order Internal Use Only DO Not Attach Compendium DO Not Attach Compendium, Do Not Delete/merge, [id number] 03/28/2017 09:46:09 09/12/19 24 09/12/2023 MAMMO , vahe andersen, digit al, bilat eral No observ ation record ed. [email or web address] [facility] [address] [place], [address], 09/12/2023 21:55:59 Result Notes None recorded. Problems Name Problem SNOMED Code Status Onset Date Resolution Date Notes Provider Name and Address Organization Details Recorded Time Anxiety 29820615 Active Nela Levy [place] null, [place] - [facility] 8 10:05:20 Fibrocystic disease of breast 56725494 Active Oscar Sellers null, [place] - [facility] 6 18:27:56 HPV - Human papillomavir us test positive Completed Nela Levy [place] null, [place] - [facility] 8 10:05:20 HPV - Human papillomavir us test positive Active Nela Levy [place] null, [place] - [facility] 8 10:05:20 Anxiety 27057701 Completed Nela RENE Levy null, [place] - [facility] 8 10:05:20 97033747 Completed 201611/08/2016 Oscar Sellers null, [place] - [facility] 7 10:51:32 Long-term drug therapy Active 2023 TIMI Wilson Attn: Hal troy,[address] [facility], [place], [address] [place] [address] - [facility] 4 11:46:39 Problem Notes None recorded. Procedures Surgical History Date Name Laterality Status Provider Name and Address Organization Details Recorded Time 08/28/2023 Date of Last Pap Smear completed Mara Bartholomew [place] - [place] 11/06/2023 16:16:17 Imaging Results None recorded. Procedure Notes None recorded. Medical Equipment None Reported. Allergies No known drug allergies Medications Name Sig Start Date Stop Date Status Note LastModified by Organization Details LastModified Time ibuprofen 800 mg tablet 03/28 completed Not Available Not Available Not Available naltrexone 50 mg tablet TAKE 1 TABLET BY MOUTH DAILY 11/24 completed Not Available Not Available Not Available metronidazo le 500 mg tablet Take 1 tablet twice a day by oral route for 7 days. 03/28 completed Not Available Not Available Not Available pantoprazol e 20 mg tablet,dustin yed release TAKE 1 TABLET BY MOUTH EVERY DAY 11/05 completed Not Available Not Available Not Available Vitamin tablet Take 1 tablet every day by oral route as directed for 90 days. 07/10 completed Not Available Not Available Not Available ciprofloxac in 0.3 % eye drops 03/28 completed Not Available Not Available Not Available cephalexin 500 mg capsule Take 1 capsule every 6 hours by oral route for 7 days. 03/28 completed Not Available Not Available Not Available norethindro ne (contracept jerry) 0.35 mg tablet Take 1 tablet every day by oral route. 11/05 completed Not Available Not Available Not Available sertraline 50 mg tablet Take 1 tablet every day by oral route. 11/05 completed Not Available Not Available Not Available vitamin E 268 mg (400 unit) capsule Take 1 capsule twice a day by oral route. 07/10 completed Not Available Not Available Not Available Evening Parshall 500 mg capsule Take 1 capsule every day by oral route at bedtime. 07/10 completed Not Available Not Available Not Available escitalopra m 10 mg tablet TAKE 1 TABLET BY MOUTH DAILY 2024 active Not Available Not Available Not Avai lable Sprintec (28) 0.25 mg-0.035 mg tablet Take 1 tablet every day by oral route. active Not Available Not Available No t Available Calcium with Vitamin D3 600 mg (carbonate) -10 mcg (400 unit) capsule Take 1 capsule twice a day by oral route. 07/10 completed Not Available Not Available Not Available Lo Loestrin Fe 1 mg-10 mcg (24)/10 mcg (2) tablet Take 1 tablet every day by oral route. 07/10 completed Not Available Not Available Not Available calcium 600 mg (as carbonate)- vitamin D3 20 mcg (800 unit) tablet Take 1 tablet twice a day by oral route. 11/05 completed Not Available Not Available Not Available Linzess 145 mcg capsule Take 1 capsule every day by oral route. 03/28 completed Not Available Not Available Not Available PrePlus 27 mg iron-1 mg tablet Take 1 tablet every day by oral route. 11/05 completed Not Available Not Available Not Available Vitals Date Recorded Body height Body mass index (BMI) Body weight Systolic And Diastolic Provider Name and Address Organization Details Last Updated DateTime 03/28/2017 154.94 cm 25.3 kg/m2 22165.38 g 104/60 mm[Hg] Nela Levy MA [facility] 03/28/2017 10:03:26 Date Recorded Systolic And Diastolic Provider Name and Address Organization Details Last Updated DateTime 11/06/2023 130/80 mm[Hg] TIMI Wilson Attn: Accounting,[address] [place], [address], [facility] 11/06/2023 16:46:54 Date Recorded Body weight Body mass index (BMI) Body height Oxygen saturation Oxygen saturation in Arterial blood by Pulse oximetry Heart rate Respiratory rate Systolic And Diastolic Provider Name and Address Organization Details Last Updated DateTime 4 13207.1 1 g 24.2 kg/m2 154.94 cm 98 % 98 % 91 /min 18 /min 128/78 mm[Hg] Mara Bartholomew MA [facility] 4 16:20:06 Date Recorded Systolic And Diastolic Provider Name and Address Organization Details Last Updated DateTime 11/21/2024 100/70 mm[Hg] TIMI Wilson Attn: Accounting,[address] [place], [address], [facility] 11/21/2024 16:21:24 Date Recorded Body height Body mass index (BMI) Body weight Oxygen saturation Oxygen saturation in Arterial blood by Pulse oximetry Respiratory rate Heart rate Systolic And Diastolic Provider Name and Address Organization Details Last Updated DateTime 5 154.94 cm 23.2 kg/m2 03638.8 6 g 98 % 98 % 18 /min 77 /min 120/76 mm[Hg] Mara Barthoolmew MA [facility] 5 15:56:26 Date Recorded Systolic And Diastolic Provider Name and Address Organization Details Last Updated DateTime 02/14/2017 120/64 mm[Hg] Jihan Oconnor MD Attn: Accounting,[address] , [place], [address], [facility] 02/14/2017 12:06:53 Date Recorded Body height Body mass index (BMI) Body weight Provider Name and Address Organization Details Last Updated DateTime 02/14/2017 154.94 cm 29.5 kg/m2 69486.46127 g Tiffany Henning MA [facility] 02/14/2017 10:10:14 Date Recorded Body height Body mass index (BMI) Body weight Provider Name and Address Organization Details Last Updated DateTime 02/20/2017 154.94 cm 26.1 kg/m2 50626.01122 g Nela Levy MA [facility] 02/20/2017 12:21:44 Social History Question Answer Notes LastModified by Organizat ion Details LastModified Time Tobacco Smoking Status Never Smoker Anna Dlegado [facility], [facility] 05/13/2015 16:51:32 Do You Have An Advance Directive? No Information not available 11/06/2023 Is Anesthesia Consult Planned? Yes 99.9% Sure For Epidural [email or web address] Information not available 08/07/2016 Plan Yes [email or web address] Information no t available 08/07/2016 Are You Blind Or Do You Have Difficulty Seeing? No Information not available 11/06/2023 Is Blood Transfusion Acceptable In An Emergency? Yes [email or web address] Information not available 05/13/2015 What Is Your Level Of Caffeine Consumption? Moderate 1-2 Daily Coffee Information not available 11/06/2023 Live With Cats/exposure To Cat Litter No [email or web address] Information not available 08/07/2016 How Much Tobacco Do You Chew? None Information not available 05/13/2015 In The 14 Days Before Symptom Onset, Have You Had Close Contact With A Laboratory-confir med COVID-19 While That Case Was Ill? No Information not available 11/06/2023 In The 14 Days Before Symptom Onset, Have You Had Close Contact With A Person Who Is Under Investigation For COVID-19 While That Person Was Ill? No Information not available 11/06/2023 Have You Been To An Area Known To Be High Risk For COVID-19? No Information not available 11/06/2023 Are You Deaf Or Do You Have Serious Difficulty Hearing? No Information not available 11/06/2023 What Type Of Diet Are You Following? REGULAR [email or web address] Information not available 05/13/2015 Which Illicit Or Recreational Drugs Have You Used? Pt Denies [email or web address] Information not available 05/13/2015 Education 2 Year College [email or web address] Information not available 05/13/2015 Have There Been Any Changes To Your Family Or Social Situation? No [email or web address] Information no t available 08/07/2016 Frequent Air Travel No [email or web address] Information not available 08/07/2016 Are There Any Guns Present In Your Home? No Information not available 11/06/2023 Illicit Drugs Pre- Denies [email or web address] Information not available 08/07/2016 Live Alone Or With Others? With Others [email or web address] Information not available 05/13/2015 Marital Status [email or web address] Informatio n not available 08/07/2016 What Was The Date Of Your Most Recent Tobacco Screening? 11/21/2024 Information not available 11/21/2024 How Many Children Do You Have? 1 [email or web address] Information not available 05/13/2015 Performs Monthly Self-breast Exam? Yes [email or web address] Information no t available 05/13/2015 Do You Use Protection During Sex? Usually [email or web address] Information not available 05/13/2015 What Is Your Relationship Status? [email or web address] Information not available 05/13/2015 Do You Use Your Seat Belt Or Car Seat Routinely? Yes Information not available 11/06/2023 Seat Belts Used Routinely Yes Information not available 05/13/2015 Are You Sexually Active? Yes [email or web address] Information not available 05/13/2015 Do You Have Smoke And Carbon Monoxide Detectors In Your Home? Yes Information not available 08/07/2016 Are You Passively Exposed To Smoke? No [email or web address] Information no t available 08/07/2016 How Much Tobacco Do You Smoke? No [email or web address] Information not available 05/13/2015 General Stress Level Low [email or web address] Information not available 05/13/2015 Do You Use Sunscreen Routinely? Yes Information not available 05/13/2015 Supplements Pnv [email or web address] Information n ot available 08/07/2016 Has Tobacco Cessation Counseling Been Provided? No Information not available 11/21/2024 How Many Years Have You Smoked Tobacco? 0 [email or web address] Information not available 05/13/2015 Sex: Female Functional Status Question Answer Note LastModified by Organizat ion Details LastModified Time Do you use any illicit or recreational drugs? No Information not available 11/06/2023 Do you or have you ever used any other forms of tobacco or nicotine? No Information not available 11/06/2023 What is your level of alcohol consumption? Occasional Information not available 11/06/2023 Are you currently employed? Yes [email or web address] Information not available 05/13/2015 Are you able to care for yourself independently? Yes Information not available 11/06/2023 What is your occupation? Teacher Information not available 11/06/2023 What is your exercise level? Moderate [email or web address] Information not available 05/13/2015 Mental Status None recorded. Family History Relationship Description Onset Age of this Age Resolved Age Notes LastModified by Organization Details LastModified Time Mother Diabetes mellitus [email or web address] Not available 05/12 16:51:32 Mother Heart disease [email or web address] Not available 05/12 16:51:32 Mother Kidney disease [email or web address] Not available 05/12 16:51:32 Mother Depressive disorder [email or web address] Not available 2023 16:28:51 Mother Hypertensive disorder [email or web address] Not available 2023 16:29:17 Maternal Grandmother Malignant neoplasm of breast 65 [email or web address] Not available 05/12 16:51:32 Medical History Condition Response Coronary Artery Disease N Blood Diseases N Kidney Cyst N Hyperthyroidism N Blood Transfusion N MRSA N Blood disorders N Emphysema N COPD N Blood Clots N Depression N Pneumonia N Peripheral Arterial Disease N Premature N Edema N TIA N Headaches/Migraines N Anxiety Disorder Y Obesity N Infertility N Polyps N Acid Reflux (GERD) N Hematuria N Stroke N Neck Injury N Polio N Hospital Admission other than N Neurologic Disorder N Other Sleep Disorders N Rheumatoid Arthritis N Fibromyalgia N Abdominal Aortic Aneurysm Repair N Kidney Disease N Heart Conditions N Heart Disease/Heart Problems N Hospitalizations N Brain Tumors N Acne N Eating Disorder Y Skin Problems N Constipation N Meningitis N Tuberculosis N Cerebral Palsy N Myocardial Infarction N Asthma N Substance Abuse N Peripheral Vascular Disease N Vertigo N Sleep Disorder N Cirrhosis N Pulmonary Embolism N Chicken Pox Y Flomax Use Past or Present N Hematologic Disease N Anxiety/Depression N Thyroid Disease N Colon Cancer N Glaucoma N Lung Disease N Developmental or Behavioral Disorders N Bipolar N Pacemaker N Diverticulitis/Diverticulosis N Anesthesia Complications N Orthopedic Problems N Orthotics N Head Injury/Concussion N Congenital Anomalies N Young Bite N Chronic Kidney Disease N Endometriosis N Liver Disease N Dialysis N Schizophrenia N Speech Delay N Chronic Obstructive Pulmonary Disease N Parkinson's Disease N Thyroid Problems N GI Problems N Developmental Delay N Anemia N Immune System Disorder N Multiple Sclerosis N Colon Polyps N Heart Attack (MD) N Diabetes N Cardiomyopathy N Blood Transfusions N Heart Problems/Murmur N Eye Trauma N Congestive Heart Failure (CHF) N Valvular Heart Disease N Hyperlipidemia N Double Vision N Abuse/Domestic Violence N Hepatitis B N Lupus N Epilepsy/Seizures N Reflux/GERD N Aneurysm N Bronchitis N Heart Disease N Hypertension N Pre-Eclampsia N Heart Failure N Other N Gout N High Blood Pressure N Atrial Fibrillation N Kidney Stones N Head Trauma/Injury N Congenital Heart Disease N Spine Problems N Gastrointestinal Disease N Lung Mass N Sinusitis N Obstructive Sleep Apnea N Muscle, Joint, or Bone Problems N Autoimmune disease N Vision or Eye Problems N Arthritis N Blood Clot N Cancer N Seasonal allergies N Leg or Foot Ulcers N Raynaud's Disease N Aortic Aneurysm N Arrhythmia N Headaches N Heart Problems N Ambloypia N Ear or Hearing Problems N Hyperparathyroidism N Migraines N Artificial Joints N Kidney or Bladder Problems N NSAID Use N Encephalitis N PTSD N Ulcers N Prostate Hypertrophy N Bleeding Disorder N AIDS/HIV N Urinary Tract Infection N Back Problems N Allergies N Atrial Flutter N GERD/Reflux N Hepatitis N Autism Spectrum Disorder (ASD) N Breast Cancer N Hernia N Hypothyroidism N Breast Problem Y Genitourinary Disease N Deep Vein Thrombosis N Varicose Veins N Cystic Fibrosis N Hearing Loss N Developmental Problems N Carotid Disease N Vitamin D Deficiency N ADHD N Bladder or Kidney Problems N High Cholesterol N Meniers N Valvular Abnormalities N Psychiatric/Mental Health Condition N Organ Transplant N Foot Deformity N Allergies/Hayfever N Dyslipidemia N Hyponatremia N Diabetic Eye Disease N Osteoporosis/Osteopenia N Back Pain N Proteinuria N Mental Illness N Neurological Problems N Ovarian Cancer N Bedwetting N Seizures/Epilepsy N Kidney Failure N Ocular trauma N Dementia N Diverticulitis N Sleep Apnea N Mental Problems N Warfarin Management N Osteoporosis N Gynecological History Statement/Question Response Abnormal Pap Y Flow Moderate Date of LMP 11/10/2024 On BCP's at Conception? N STIs/STDs Y HPV Vaccine N Duration of Flow (days) 3 Most Recent Mammogram Age at Menarche 11 Current Control Method None Age at First Child 28 Sexually Active? Y Menses Monthly Y Date of Last Pap Smear 08/28/2023 Sexual Problems? N LMP Approximate Desired Control Method None Obstetrics History GPAL:G 2 P 2 0 0 2 Type Value Multiple Births 0 Full Term 2 Induced 0 Spontaneous 0 Premature 0 Living 2 Ectopics 0 Total 2 Immunizations Vaccine Type Date Status Note Provider Nam e and Address Organization Details Recorded Time COVID-19, mRNA, LNP-S, PF, 30 mcg/0.3 mL dose 1 completed Jeannie [place], [place] - [facility] 09/13/2020 14:05:51 COVID-19, mRNA, LNP-S, PF, 30 mcg/0.3 mL dose 1 completed [place], [place] - [facility] 09/13/2020 14:06:10 Tdap 7 completed Not Available [facility] 03/15/2019 02:44:55 Influenza, MDCK, quadrivalent, PF 8 completed Not Available [facility] 11/21/2024 15:33:27 COVID-19, mRNA, LNP-S, PF, 30 mcg/0.3 mL dose 1 completed Not Available [facility] 11/21/2024 15:33:27 Influenza, split virus, quadrivalent, preservative 7 completed Not Available [facility] 03/15/2019 02:44:19 Past Encounters Encounter ID Performer Location Encounter Start Date Encounter Closed Date Diagnosis/Indication Diagnosis SNOMED-CT Code Diagnosis ICD10 Code Diagnosis IMO Codes Diagnosis Note [id number] MD Ananya Davidson ([employer]) [address] [place] [address] [id number] 0 05/13/2015 15:59:23 05/13/2015 17:56:00 Family planning surveillance 243893462 Z30.09 Fibrocysti c disease of breast 61063686 N60.12 [id number] MD Ananya Davidson ([employer]) [address] [place] [address] [id number] 0 07/10/2016 10:13:01 07/11/2016 15:11:12 Routine care 712291093 Z34.91 Family marleny nning surveillance 515790079 Z30.09 [id number] [facility] [address] [place] [address] [id number] 0 08/04/2016 09:14:57 08/04/2016 17:42:50 Normal 91842771 Z34.91 [id number] [facility] [address] [place] [address] [id number] 0 08/07/2016 10:44:23 08/07/2016 12:30:15 Routine care 698242757 Z34.91 Anxiety 94730483 F41.9 [id number] Oscar Sellers MD [facility] ([employer]) [address] [place] [address] [id number] 0 09/11/2016 09:48:40 09/11/2016 14:30:29 Routine care 142677270 Z34.92 [id number] Oscar Sellers MD [facility] ([employer]) [address] [place] [address] [id number] 0 10/09/2016 10:04:06 10/09/2016 15:18:38 Routine care 626168607 Z34.92 Fibrocysti c disease of breast 10461519 N60.12 Anxiety 26277383 F41.9 [id number] [facility] [address] [place] [address] [id number] 0 11/08/2016 09:42:30 11/08/2016 10:40:51 Routine care 147676211 Z34.92 screening 2437 32269 Z36 [id number] Oscar Sellers MD [facility] ([employer]) [address] [place] [address] [id number] 0 12/06/2016 09:34:28 12/06/2016 10:58:11 Routine care 367874735 Z34.83 Active or passive immunization 783224796 Z23 [id number] MD Ananya Davidson ([employer]) [address] [place] [address] [id number] 0 12/20/2016 09:46:43 12/20/2016 10:15:52 Routine care 228639197 Z34.83 [id number] MD Ananya Davidson ([employer]) [address] [place] [address] [id number] 0 01/03/2017 09:59:01 01/03/2017 10:59:17 Routine care 992297186 Z34.83 [id number] MD Ananya Davidson ([employer]) [address] [place] [address] [id number] 0 01/17/2017 10:05:56 01/17/2017 16:50:38 Routine care 237210934 Z34.83 HPV - Neli n 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 positive 813602323 R87.538 [id number] [facility] [address] [place] [address] [id number] 0 01/24/2017 09:35:05 01/24/2017 11:48:36 Routine care 570706228 Z34.83 HPV - Nlei n 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 positive 317246362 R87.728 [id number] MD Ananya Davidson ([employer]) [address] [place] [address] [id number] 0 01/31/2017 09:38:35 01/31/2017 14:44:00 Routine care 769205476 Z34.83 [id number] MD Ananya Salazar ([employer]) [address] [place] [address] [id number] 0 02/07/2017 09:36:28 02/07/2017 12:14:39 Routine care 724834915 Z34.83 [id number] MD Ananya Salazar ([employer]) [address] [place] [address] [id number] 0 02/14/2017 09:40:30 02/14/2017 11:02:50 Routine care 551260104 Z34.83 [id number] MD Ananya Salazar ([employer]) [address] [place] [address] 73105-956 0 02/20/2017 12:07:10 02/20/2017 13:02:55 Vaginal odor 370875414 N89.8 COUNSELED ABOUT POSSIBLE CAUSES INCLUDING BV. Hernia of abdominal wall 753419849 K43.6 COUNSELED ABOUT IT. Local infe ction of wound 21290100 B99.9 Counseled about it. Constipation 22741396 K5 9.00 She is on ferrous sulphate. counseled about fibre diet and increased fluid intake. [id number] MD Ananya Davidson ([employer]) [address] [place] [address] [id number] 0 03/28/2017 09:42:24 03/28/2017 11:07:49 care 501380674 Z39.2 Exposure t o sexually transmissible disorder 232204769 Z20.2 Family marleny nning surveillance 681918111 Z30.09 [id number] Mike Neumann MD [facility] [employer] [address] [place] [address] 11/06/2023 15:54:40 11/08/2023 15:48:39 Adult health examination 489868017 Z00.00 Annual wellness exam completed Generalize d anxiety disorder 46616780 F41.1 Stable on Lexapro 10 mg daily Cholesterol screening 27 7976111 Z13.220 Fasting lipid panel due Diabetes m ellitus screening 741030602 Z13.1 A1c diabetes screening ordered Long-term drug therapy 538698845 Z79.899 cmp, cbc and b12, folate labs are due Thyroid di sorder screening 433870968 Z13.29 Annual thyroid labs ordered [id number] Mike Neumann MD [facility] [employer] [address] [place] [address] 11/21/2024 15:31:47 11/26/2024 11:26:47 Adult health examination 403318948 Z00.00 Annual wellness exam completed Generalize d anxiety disorder 39034342 F41.1 Stable on Lexapro 10 mg daily. Refill provided Cholesterol screening 27 6661208 Z13.220 Fasting lipid panel due Diabetes m ellitus screening 252254193 Z13.1 A1c diabetes screening ordered Long-term drug therapy 160730894 Z79.899 cmp, cbc and b12, folate labs are due Thyroid di sorder screening 260439463 Z13.29 Annual thyroid labs ordered Screening mammography 24 279695 Z12.31 [id number] Annual mammogram due Hernia of anterior abdominal wall 404297506 K43.[id number] scan abdomen and pelvis with contrast to evaluate for hernia of the anterior abdominal wall found on exam Health Concerns Section Related Observation LastModified by Organization Detai ls LastModified Time None Recorded Concern Status LastModified by Organization Details LastModified Time None Recorded Advance Directives Directive N: Payers Insurance Date Sequence Insurance Name Policy Number Policy Fisher Covered Member ID Fisher Member ID Guarantor Name 11/26/2024 1 [facility] [id number] Sanford Mendez [id number] Kayley Mendez Notes Date Note Type Note Provider Name and Address Organization Details Recorded Time 02/14/2017 text/html OB ProblemReport ed by PatientHPIFor associated symptoms, patient reportsno abdominal pain,no cramping,no contractions,normal movement,no bleeding,no rom,no vaginal discharge,no vaginal/vulvar itching or irritation,no dysuria,no frequency,no urgency,no hematuria,no fever,no nausea,no emesis,no constipation,no diarrhea/loose stool,no edema,no visual changes,no headache, andno dizziness.ROS as noted in the HPI 31 y/o here today for BRYAN at 40.5 weeks. Patient expresses no complaints. Jihan Oconnor MD Attn: Accounting,[address] [facility], [place], [address], [facility] 02/14/2017 12:07:29 02/20/2017 text/html C/O VAGINAL ODOR. SHE DENIES ANY VAGINAL DISCHARGE. SHE SAY SHE HAS MINIMAL LOCHIA. DENIES CP/SOB/N/V/F/CHILLS/ CALF PAIN/ URINARY SYMPTOMS.CONSTIPATIO N SINCE DELIVERY. SHE SAY SHE IS TAKING FERROUS SULPHATE. Jihan Oconnor MD Attn: Accounting,[address] [place], [address], [facility] 02/20/2017 13:12:38 03/28/2017 text/html VisitReported by PatientHPIFor associated symptoms, patient reportsno abnormal bleeding,no pelvic pain,laceration well healed,no constipation,no fecal incontinence,no dysuria,no urinary incontinence,no fever,no problems, andno mastitis. Pt is a 31 yo F here for post follow up. She reports she is doing well overall. She is currently breast feeding. Oscar Sellers daphnie, [facility] 03/28/2017 10:32:26 11/06/2023 text/html Anxiety/Depressi onRe ported by PatientPatient is on Lexapro 10 mg daily for control of generalized anxiety. She has stopped drinking alcohol and that has helped greatly Patient is here for annual wellness exam and due for labs TIMI Wilson Attn: Accounting,[address] [place], [address], [facility] 11/25/2023 11:48:20 11/21/2024 text/html Anxiety/Depressi onRe ported by PatientPatient is on Lexapro 10 mg daily for control of generalized anxiety. She has stopped drinking alcohol and that has helped greatly. She is feeling really good overall and has no complaints Patient is here for annual wellness exam and due for labs TIMI Wilson Attn: Accounting,[address] [place], [address], [facility] 11/25/2024 13:55:44 OBGyn Episode Ob Episode Information Episode Created Date Number of Fetuses Patient Bloodtype Patient rh Status Prepregnancy Weight lbs Domestic Partner Domestic Partner Phone Father Name Rn Staffing Status 05/13/19 16 1 CLOSED Fetus Data First Name Last Name Admitted to NICU Weight (g) Sex Living Outcome Pediatric Complications Fetus ID Race Codes Race Delivery Type 3968.93 F Full Term 92010 Vaginal Apollo Calculation Initial Apollo Date Initial Exam Date Initial Exam Provider Initial Ultrasound Date Last Menstrual Period Date Ultra Sound Weeks Gestation 0 Eighteen To Twenty Week Apollo Update Ultra Sound Date Fundal Height At Umbil Quickening Date Ultra Sound Latest Weeks Gestation Final Apollo Confirmed By Final Apollo Confirmed Date Final Apollo Date Ultra Sound Latest Days Gestation 0 0 Menstrual History Last Menstrual Date Menses Monthly On Bcp Conception Prior Menses Frequency Hcg Plus Date Menarche Onset Age Delivery Information Delivery Date Delivery Type Labor Anesthesia Weeks Gestation Incision Type Labor Labor Length Hrs Delivered By Post Complications Tubal Sterilization Discharge Date Comments 4 Regional- idural 40 Discharge Information Feeding Method Contraceptive Method Maternal HG B and HCT Levels Ob Episode Information Episode Created Date Number of Fetuses Patient Bloodtype Patient rh Status Prepregnancy Weight lbs Domestic Partner Domestic Partner Phone Father Name Rn Staffing Status 07/11/19 17 1 A Positive [facility] CLOSED Fetus Data First Name Last Name Admitted to NICU Weight (g) Sex Living Outcome Pediatric Complications Fetus ID Race Codes Race Delivery Type Sabsti an Tyler patten Angela prabhjot false 4252.42 5 M true Full Term [id number] 2106-3 White Vaginal Problems Problem Notes Does not know what she is reveles ving , does not want to know what she is having unti baby is born. DO NOT REVEAL TO THE PATIENT THE SEX OF THE BABY DURING DELIVERY. Peds Dr. Brooks ([facility], [place]), , If a boy, circumcision is YES, , vaginal with epidural. 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 08/01/2016 05/10/2016 12 Eighteen To Twenty Week Apollo Update Ultra Sound Date Fundal Height At Umbil Quickening Date Ultra Sound Latest Weeks Gestation Final Apollo Confirmed By Final Apollo Confirmed Date Final Apollo Date Ultra Sound Latest Days Gestation 08/02/19 17 12 [facility] 08/07/201602/09/ 017 4 Pre-farzaneh Flowsheet Flowsheet Date 07/10/2016 Craig Score Blood Edema Fundus Height Fundus Units Glucose Ketones Leukocytes Nitrite Labor Signs Protein Cervic Dilation Cervic Effacement Cervic Station neg none 8 wks none negative none neg 0cm Type Weight in lbs Pre/Post Dialysis Refused 118.620526318167 BP Diastolic BP Location Tested BP Systolic BP Type 64 108 sitting Fetus Heart Rate Present Fetus Movement Comments Flowsheet Date 08/04/2016 Craig Score Blood Edema Fundus Height Fundus Units Glucose Ketones Leukocytes Nitrite Labor Signs Protein Cervic Dilation Cervic Effacement Cervic Station Type Weight in lbs Pre/Post Dialysis Refused BP Diastolic BP Location Tested BP Systolic BP Type Fetus Heart Rate Present Fetus Movement Comments Flowsheet Date 08/07/2016 Craig Score Blood Edema Fundus Height Fundus Units Glucose Ketones Leukocytes Nitrite Labor Signs Protein Cervic Dilation Cervic Effacement Cervic Station neg none 12 wks none negative none neg Type Weight in lbs Pre/Post Dialysis Refused 122.550969572372 BP Diastolic BP Location Tested BP Systolic BP Type 62 100 sitting Fetus Heart Rate Present A 164 Present Fetus Movement A Yes Comments Flowsheet Date 09/11/2016 Craig Score Blood Edema Fundus Height Fundus Units Glucose Ketones Leukocytes Nitrite Labor Signs Protein Cervic Dilation Cervic Effacement Cervic Station neg none 18 wks none negative none neg Type Weight in lbs Pre/Post Dialysis Refused 129.799738288360 BP Diastolic BP Location Tested BP Systolic BP Type 50 120 sitting Fetus Heart Rate Present A 152 Present Fetus Movement A Yes Comments AFP labs drawn today and 2nd trimester U/S ordered; F/U in 4 weeks. Flowsheet Date 10/09/2016 Craig Score Blood Edema Fundus Height Fundus Units Glucose Ketones Leukocytes Nitrite Labor Signs Protein Cervic Dilation Cervic Effacement Cervic Station neg none 23 cm none negative none neg Type Weight in lbs Pre/Post Dialysis Refused 138.016006959194 BP Diastolic BP Location Tested BP Systolic BP Type 58 102 sitting Fetus Heart Rate Present A 154 Present Fetus Movement A Yes Comments 22.3 week BRYAN. GTT in 4 week s at next visit. F/U in 4 weeks. Patient does not want to know sex of baby. Plan for vaginal delivery with epidural. Flowsheet Date 11/08/2016 Craig Score Blood Edema Fundus Height Fundus Units Glucose Ketones Leukocytes Nitrite Labor Signs Protein Cervic Dilation Cervic Effacement Cervic Station neg none 28 cm none negative none neg Type Weight in lbs Pre/Post Dialysis Refused 139.173982360765 BP Diastolic BP Location Tested BP Systolic BP Type 60 106 sitting Fetus Heart Rate Present A 155 Present Fetus Movement A Yes Comments gtt/tdap/us Flowsheet Date 12/06/2016 Craig Score Blood Edema Fundus Height Fundus Units Glucose Ketones Leukocytes Nitrite Labor Signs Protein Cervic Dilation Cervic Effacement Cervic Station neg none 30 wks none negative none neg Type Weight in lbs Pre/Post Dialysis Refused 145.1445500994 BP Diastolic BP Location Tested BP Systolic BP Type 60 112 sitting Fetus Heart Rate Present A 150 Present Fetus Movement A Yes Comments Flowsheet Date 12/20/2016 Craig Score Blood Edema Fundus Height Fundus Units Glucose Ketones Leukocytes Nitrite Labor Signs Protein Cervic Dilation Cervic Effacement Cervic Station neg none 32 cm none negative none neg Type Weight in lbs Pre/Post Dialysis Refused 147.475172414501 BP Diastolic BP Location Tested BP Systolic BP Type 68 110 sitting Fetus Heart Rate Present A 132 Present Fetus Movement A Yes Comments Flowsheet Date 01/03/2017 Craig Score Blood Edema Fundus Height Fundus Units Glucose Ketones Leukocytes Nitrite Labor Signs Protein Cervic Dilation Cervic Effacement Cervic Station neg none 34 wks none negative none neg Type Weight in lbs Pre/Post Dialysis Refused 152.638952430837 BP Diastolic BP Location Tested BP Systolic BP Type 60 100 sitting Fetus Heart Rate Present A 135 Present Fetus Movement A Yes Comments us/meet Dr Andrew Flowsheet Date 01/17/2017 Craig Score Blood Edema Fundus Height Fundus Units Glucose Ketones Leukocytes Nitrite Labor Signs Protein Cervic Dilation Cervic Effacement Cervic Station neg none 34 cm none negative none neg 0cm 70% - 1 Type Weight in lbs Pre/Post Dialysis Refused 154.655523981382 BP Diastolic BP Location Tested BP Systolic BP Type 64 110 sitting Fetus Heart Rate Present A 161 Present Fetus Movement A Yes Comments posterior cervix closed Flowsheet Date 01/24/2017 Craig Score Blood Edema Fundus Height Fundus Units Glucose Ketones Leukocytes Nitrite Labor Signs Protein Cervic Dilation Cervic Effacement Cervic Station neg none 37 cm none negative none neg Type Weight in lbs Pre/Post Dialysis Refused 156.078694575309 BP Diastolic BP Location Tested BP Systolic BP Type 64 114 sitting Fetus Heart Rate Present A 130 Present Fetus Movement A Yes Comments Flowsheet Date 01/31/2017 Craig Score Blood Edema Fundus Height Fundus Units Glucose Ketones Leukocytes Nitrite Labor Signs Protein Cervic Dilation Cervic Effacement Cervic Station neg none 38 wks none negative none neg 0cm 80% - 3 Type Weight in lbs Pre/Post Dialysis Refused 158.679268644257 BP Diastolic BP Location Tested BP Systolic BP Type 74 120 sitting Fetus Heart Rate Present A 134 Present Fetus Movement A Yes Comments will see Dr. Andrew in one week f or disposition for delivery. wtc/wlb given 01/31/2017 mds Flowsheet Date 02/07/2017 Craig Score Blood Edema Fundus Height Fundus Units Glucose Ketones Leukocytes Nitrite Labor Signs Protein Cervic Dilation Cervic Effacement Cervic Station neg none 39 cm none negative none neg Type Weight in lbs Pre/Post Dialysis Refused BP Diastolic BP Location Tested BP Systolic BP Type 56 110 sitting Fetus Heart Rate Present A 134 Present Fetus Movement A Yes Comments LABOR, PREECLAMPSIA AND KICK COUNTS DISCUSSED. Flowsheet Date 02/14/2017 Craig Score Blood Edema Fundus Height Fundus Units Glucose Ketones Leukocytes Nitrite Labor Signs Protein Cervic Dilation Cervic Effacement Cervic Station neg none 41 cm none negative none neg 2cm 70% - 3 Type Weight in lbs Pre/Post Dialysis Refused 156.026942977493 BP Diastolic BP Location Tested BP Systolic BP Type 64 120 sitting Fetus Heart Rate Present A 132 Present Fetus Movement A Yes Comments TERM FAVOURABLE CERVIX FOR I NDUCTIOND/W PATIENT. CALLED L & [facility] AND NOTIFIED NURSE NIELS. Flowsheet Date 02/20/2017 Craig Score Blood Edema Fundus Height Fundus Units Glucose Ketones Leukocytes Nitrite Labor Signs Protein Cervic Dilation Cervic Effacement Cervic Station Type Weight in lbs Pre/Post Dialysis Refused 138.794045691492 BP Diastolic BP Location Tested BP Systolic BP Type sitting Fetus Heart Rate Present Fetus Movement Comments Flowsheet Date 03/28/2017 Craig Score Blood Edema Fundus Height Fundus Units Glucose Ketones Leukocytes Nitrite Labor Signs Protein Cervic Dilation Cervic Effacement Cervic Station Type Weight in lbs Pre/Post Dialysis Refused 134.47949333241 BP Diastolic BP Location Tested BP Systolic BP Type 60 L arm 104 sitting Fetus Heart Rate Present Fetus Movement Comments Menstrual History Last Menstrual Date Menses Monthly On Bcp Conception Prior Menses Frequency Hcg Plus Date Menarche Onset Age 0305/10/2016 false Genetic Screening And Infection History Question Response Note Patient's Age Will Be 35 Yea rs Or Older At Estimated Date of Delivery false Thalassemia (Ghanaian, Arabic, Mediterranean, Or Background): MCV < 80 false Neural Tube Defect (Meningom yelocele, Spina Bifida, Or Anencephaly) false Congenital Heart Defect false Down Syndrome false Jonas-Sachs (eg, Restorationist, Cajun, Portuguese-Denton) f alse Adina Disease false Sickle Cell Disease Or Trait () false Hemophilia Or Other Blood Disorders false Muscular Dystrophy false Cystic Fibrosis false Mounds's Chorea false Mental Retardation/Autism false If Yes, Was Person Tested For Fragile X? false Other Inherited Genetic Or Chromosomal Disorder false Maternal Metabolic Disorder (eg, Type 1 Diabetes , PKU) false Patient Or Baby's Father Had A Child With Defects Not Listed Above false Recurrent Loss, Or A Stillbirth false Medications (including Suppl ements, Vitamins, Herbs, OTC Drugs), Illicit/Recreational Drugs, Alcohol true see med li st If Yes, Agent(s) And Strength/Dosage false Any Other Genetic History false Live With Someone With TB Or Exposed To TB false Patient Or Partner Has History Of Genital Herpes false Rash Or Viral Illness Since Last Menstrual Perio d false History Of STD, Gonorrhea, Chlamydia, HPV, Syphi lis true hpv Other Infection History false Plans and Education First Trimester Discussed Date Discussion Item Discussion Note Discuss ed By 08/04/2016 Anticipated course o f care [email or web address] 08/04/2016 Alcohol [email or web address] 08/04/2016 Intimate partner violence unley08/04/2016 Environmental/work hazards r hunley1 08/04/2016 Screening for aneuploidy rhu nley1 08/04/2016 Nutrition counseling ; special diet; dietary precautions (mercury, listeriosis) [email or web address] 08/04/2016 [facility] HIV and other routin e tests at initial ob visit [email or web address] 08/04/2016 Risk factors identif ied by history [email or web address] 08/04/2016 Weight gain counseling rhunl ey1 08/04/2016 Exercise [email or web address] 08/04/2016 Teratogens [email or web address] 08/04/2016 Use of any medicatio ns (including supplements, vitamins, herbs, or OTC drugs) prescribed medications [email or web address] 08/04/2016 breastfeed [email or web address] 08/04/2016 Sexual activity [place] [id number] 08/04/2016 Tobacco/smoking cess ation counseling (ask, advise, assess, assist, and arrange) [place] [address] 08/04/2016 Illicit/recreational drugs [place] [id number] 08/04/2016 Dental care given dental con sent at initial ob visit [place] [id number] 08/04/2016 Travel [place] [id number] 08/04/2016 Seat belt use [place] [id number] 08/04/2016 Indications for ultrasonography [place] [address] 08/04/2016 Avoidance of saunas or hot tubs [place] [address] 08/04/2016 Toxoplasmosis precau tions (cats/raw meat) [place] [address] Second Trimester Discussed Date Discussion Item Discussion Note Discuss ed By 10/09/[address] Brooks at [facility] 08/04/2016 family planning/tubal sterilization [place] vasectomy [place] [id number] 10/09/2016 Depression screening (when indicated) [facility] 10/09/2016 Abnormal lab values [facility] 10/09/2016 Signs and symptoms o f labor [facility] 10/09/2016 Intimate partner violence [facility] 10/09/2016 Tobacco/smoking cess ation counseling (ask, advise, assess, assist, and arrange) [facility] Third Trimester Discussed Date Discussion Item Discussion Note Discuss ed By 11/08/2016 Intimate partner violence [facility] 11/08/2016 Anesthesia plans epidural [facility] 11/08/2016 Peculiar education (n ewborn screening, jaundice, SIDS/safe sleeping position, car seat) [facility] 11/08/2016 Circumcision if a boy, yes, p t does not know sex of baby [facility] 11/08/2016 Postterm counseling [facility] 11/08/2016 movement monitoring given kick coun ts [facility] 11/08/2016 [facility] 11/08/2016 Labor signs given wtc/wlb [facility] 11/08/2016 depression [facility] 11/08/2016 Family medical leave or disability forms [facility] 11/08/2016 Tobacco/smoking cess ation counseling (ask, advise, assess, assist, and arrange) [facility] 11/08/2016 Trial of labor after (TOLAC) counseling [facility] 11/08/2016 Signs and symptoms o f preeclampsia [facility] Delivery Information Delivery Date Delivery Type Labor Anesthesia Weeks Gestation Incision Type Labor Labor Length Hrs Delivered By Post Complications Tubal Sterilization Discharge Date Comments 7 [facility] 40.[address] Oconnor Other false 02/17/[address] elizaldetercarlin Discharge Information Feeding Method Contraceptive Method Maternal HG B and HCT Levels Breast
--- OUTSIDE RECORDS SUMMARY | 2024-11-28 16:06 | XMS_ITS | Patient Health Record ---
Author Organization [facility] [employer] Address [address] [facility] [address] [place] [address] Care Team Providers Care Records Analysis Manager Name Role Phone Padmini Kramer Primary Care Provider William calvin Allergies No Known Allergies Reason For Referral No Information Medications Medication SIG (Take, Route, Frequency, Duration) Notes Start Date End Date Status Escitalopram Oxalate 10 MG Tablet 1 tablet Oral Once a day; Duration: 30 days Active Escitalopram Oxalate 10 MG Tablet TAKE 1 TABLET BY MOUTH EVERY DAY Oral; Duration: 30 Days Not-Taking Escitalopram Oxalate 10 MG Tablet TAKE 1 TABLET BY MOUTH EVERY DAY Oral; Duration: 30 Days Not-Taking Pantoprazole Sodium 20 MG Tablet Delayed Release Oral; Duration: 30 Days Not-Taking Pantoprazole Sodium 20 MG Tablet Delayed Release TAKE 1 TABLET BY MOUTH EVERY DAY Oral; Duration: 30 Days Not-Taking Escitalopram Oxalate 10 MG Tablet TAKE 1 TABLET BY MOUTH EVERY DAY Oral; Duration: 30 Days Not-Taking Social History Tobacco Use: Social History Observation Description Date Details (start date - stop date) Never Smoker NA - NA Sex Assigned At : Social History Observation Description Sex Assigned At Female Social History Miscellaneous: Social Info Question Answer Notes Safety issues: Are there any firearms in the house? No Social History Social Info Question Answer Notes Household: Marital Status: Number of Adults in household: 2 Number of Children in Household: 2 Level of Education: Finished College Drug/Alcohol: Social Info Question Answer Notes Drugs Have you used drugs other than those for medical reasons in the past 12 months? No AUDIT-C (Standard) Did you have a drink containing alcohol in the past year? Yes How often did you have six or more drinks on one occasion in the past year? 4 or more times a week (4 points) How many drinks did you have on a typical day when you were drinking in the past year? 5 or 6 drinks (2 points) How often did you have a drink containing alcohol in the past year? Daily or almost daily (4 points) Tobacco Use: Social Info Question Answer Notes Tobacco Control (Standard) Tobacco use: Nonsmoker Additional Details Category Social Info Options Details Miscellaneous: Occupation: Teacher Problems Problem Type SNOMED Code ICD Code Onset Dates Problem Status W/U Status Risk Notes Problem Generalized anxiety disorder (39179180) Generalized anxiety disorder (F41.1) Active confirmed Problem Panic disorder (115918148) Panic attacks (F41.0) Active confirmed Problem Mild recurrent major depression (65492949) Mild recurrent major depression (F33.0) Active confirmed Plan Of Treatment No Information Insurance Providers Payer Name Payer Address Payer Phone Subscriber Number Group Number Insured Name Patient Relationship to Insured Coverage Start Date Coverage End Date [facility] [id number] [place] [phone] [id number] RUFUS EDMONDSON Spouse - patient is the spouse of the insured Medical (General) History Medical History History ICD Code Past Psychiatric History: Anxiety Disord er abdominal aortic aneurysm: No atrial fibrillation: No chronic fatigue syndrome: No essential tremor: No hyperlipidemia: No hypertension: No Parkinson's disease: No restless leg syndrome: No stroke: No subdural hematoma: No type 1 diabetes mellitus: No type 2 diabetes mellitus: No vitamin B12 deficiency: No vitamin D deficiency: No
== END 2024-11-28 16:01 | disposition home or self-care (01) ==
PROVIDERS: PCP Physician Assistant; Visit Provider Physician Assistant
DX: K43.9 Ventral hernia without obstruction or gangrene (principal)
CPT/HCPCS: 74177; Q9967